=== PATIENT | male | born 1945 | race Caucasian/White ===

== ENCOUNTER 2020-06-21 20:53 | Outpatient (REF) | payer OTHER, SELFPAY ==
[2020-06-21 20:38] LABS: Calculated LDL 138 mg/dL (<100); Cholesterol 220 mg/dL (<200); HDL Cholesterol 76 mg/dL (40-60); Triglyceride 33 mg/dL (<150)
== END 2020-06-21 20:54 | disposition home or self-care (01) ==
LOC: LBN 20:53
PROVIDERS: PCP Family Medicine; Visit Provider Family Medicine
DX: E78.5 Hyperlipidemia, unspecified (principal)
CPT/HCPCS: 80061

== ENCOUNTER 2020-11-10 00:58 | Outpatient (CLI) | payer OTHER, SELFPAY ==
[2020-11-10 21:58] LABS: PSA, Screening 0.5 ng/mL (0.0-6.5)
== END 2020-11-10 00:59 | disposition home or self-care (01) ==
LOC: LOS 01:07
PROVIDERS: PCP Family Medicine; Visit Provider Family Medicine
DX: Z12.5 Encounter for screening for malignant neoplasm of prostate (principal)
CPT/HCPCS: 36415; 84153

== ENCOUNTER 2024-02-02 10:04 | Inpatient (IN) | payer OTHER, SELFPAY ==
[2024-02-02 13:02] VITALS: BP 116/84; PULSE 70; RESP 18; TEMP 37.6; O2SAT 96
--- NOTE | 2024-02-02 13:15 | W.PC.ACHO ---
Registration Status: Primary Language: Preferred Language: (Last Reviewed 01/01/23 @ 11:32 by Portillo Gray MD) REMOVAL OF LIPOMAS Most Recent Vital Signs Temperature 37.6 C H 02/02/24 13:02 Temperature Source Tympanic 02/02/24 13:02 Pulse 70 02/02/24 13:02 Respiratory Rate 18 02/02/24 13:02 Blood Pressure 116/84 02/02/24 13:02 Pulse Oximetry 96 02/02/24 13:02 Oxygen Delivery Method Room Air 02/02/24 13:02 Oxygen Flow Rate 0 02/02/24 13:02 Pain Level 2 02/02/24 13:02 Comment RN notified 02/02/24 13:02 Allergies No Known Allergies Allergy (Verified 01/01/23 11:41) Diet Orders Category Date Time Status Nothing Per Oral [DIET] Nutrition 02/03/24 Breakfast Ordered Regular/Normal [DIET] Nutrition 02/02/24 Lunch Active Diagnostics 02/02/24 02/02/24 Range/Units Unknown 10:06 WBC Pending RBC Pending Hgb Pending Hct Pending MCV Pending MCH Pending MCHC Pending RDW Pending Plt Count Pending MPV Pending Sodium Pending Potassium Pending Chloride Pending Carbon Dioxide Pending Anion Gap Pending BUN Pending Creatinine Pending Est GFR (CKD-EPI 2020) Pending Glucose Pending Calcium Pending v v v v v v v v v Sending and/or Receiving Nurses: Please use comment section below to note any information pertinent to the patient hand-off not included above. Information / Comments: rprured quads tripping down stairs Report received from: Odilia
[2024-02-02] MEDS: oxyCODONE 5 MG TAB PO ×2 (13:28→15:20)
[2024-02-02] MEDS: Ketorolac 15 MG/ML VIAL IVP (13:28)
[2024-02-02] MEDS: Acetaminophen 500 MG TAB 1000 MG PO (15:20)
[2024-02-02 15:25] VITALS: BP 101/70; PULSE 66; RESP 16; TEMP 36.5; O2SAT 95
--- NOTE | 2024-02-02 17:15 | W.PC.ACHO ---
Registration Status: Primary Language: Preferred Language: (Last Reviewed 01/01/23 @ 11:32 by Portillo Gray MD) REMOVAL OF LIPOMAS Most Recent Vital Signs Temperature 36.5 C 02/02/24 15:25 Temperature Source Tympanic 02/02/24 15:25 Pulse 66 02/02/24 15:25 Respiratory Rate 16 02/02/24 15:25 Blood Pressure 101/70 02/02/24 15:25 Pulse Oximetry 95 02/02/24 15:25 Oxygen Delivery Method Room Air 02/02/24 15:25 Oxygen Flow Rate 0 02/02/24 15:25 Pain Level 0 02/02/24 15:25 Comment RN notified 02/02/24 13:02 Allergies No Known Allergies Allergy (Verified 02/02/24 14:02) Active Medications Generic Name Dose Route Start Last Admin Trade Name Freq PRN Reason Stop Dose Admin Acetaminophen 1,000 mg 02/02/24 10:04 02/02/24 15:20 Acetaminophen 500 Mg Tab PO 1,000 mg Q6H PRN PRN Administration Ketorolac Tromethamine 15 mg 02/02/24 14:00 02/02/24 13:28 Ketorolac 15 Mg/Ml Vial IVP 02/07/24 13:59 15 mg Q8H FELIPE Administration Oxycodone HCl 0 mg 02/02/24 10:04 02/02/24 15:20 Oxycodone 5 Mg Tab PO 5 mg Q3H PRN PRN Administration Pain IV IV Catheter Type [Left Wrist] Peripheral IV IV Catheter Gauge [Left Wrist] 22 Diet Orders Category Date Time Status Nothing Per Oral [DIET] Nutrition 02/03/24 Breakfast Ordered Regular/Normal [DIET] Nutrition 02/02/24 Lunch Active Diagnostics 02/02/24 02/02/24 Range/Units Unknown 10:06 WBC Pending RBC Pending Hgb Pending Hct Pending MCV Pending MCH Pending MCHC Pending RDW Pending Plt Count Pending MPV Pending Sodium Pending Potassium Pending Chloride Pending Carbon Dioxide Pending Anion Gap Pending BUN Pending Creatinine Pending Est GFR (CKD-EPI 2020) Pending Glucose Pending Calcium Pending v v v v v v v v v Sending and/or Receiving Nurses: Please use comment section below to note any information pertinent to the patient hand-off not included above. Information / Comments:transfer from [facility] for bilateral ruptured quadriceps, fell down stairs Report received from:Lillie at [facility] at 12:55, pt was on the Med/Surg floor via [facility] 12:46
--- NOTE | 2024-02-02 17:24 | HPE_ITS ---
Date of service: 02/02/24 Time of Service: 16:50 Assessment and Plan Assessment and plan (1) Rupture of left quadriceps muscle: Status: Acute (2) Rupture of right quadriceps muscle: Status: Acute Assessment and plan: Carmelo is a 78 year old active male who suffered traumatic rupture of bilateral quadriceps. 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 At the time of quadriceps repair there is nothing more that can be done with the joint itself. On a day to day basis the knees don't limit him greatly and we will worry with treatment of the knee pain/arthritis/dysfunction once he heals the qaudriceps tendon ruptures. I discussed the need for urgent operative fixation of the tendon ruptures. I reviewed the risks of the procedure to include pain, stiffness, bleeding, rerupture, knee pain, failure to heal, damage to nerves and vessels. He agrees to proceed. Due to multiple other trauma cases this will likely not be fixed until Friday. I discussed this with him and he understands. Given the bilateral nature of his inujuries, mobilization will be challenging and thus we will keep him admitted until surgery on Friday. Following surgery he will be WBAT on both legs with knee immobilizers locked in full extension. History of Present Illness History of Present Illness Chief Complaint: Bilateral Quad Tendon Ruptures N arrative: Carmelo is a healthy and active 78 year old male. He was in his usual health when he was walking down the stairs and tripped over a tennis ball and fell with both feet behind him. He had immediate pain and inability to bear weight. He was brought to the [facility] ED and diagnosed with bilateral quad tendon ruptures. There was no orthopaedic surgery coverage. He was admitted to the hospital and unable to find other tertiary transfer. I was called in consultation and I accepted him on transfer. He has had some ongoing issues with both knees which keeps him from playing tennis and being otherwise more active. However, he is still very functional and denied having significant anterior knee pain although he does report having anterior knee issues many years ago; it kept me out of the . No pre-inuury weakness or significant issues. He currrently has inability to bear weight and only minimal pain. He denies any other major medical issues and no regular medications. Review of Systems All systems reviewed & are unremarkable except as noted in HPI and below [facility] All Active Problems Rupture of right quadriceps muscle (Acute) Rupture of left quadriceps muscle (Acute) Esophagitis (Acute) Left inguinal hernia (Acute) s/p repair 03/2020 (also incarcerated left femoral hernia) Weight loss (Acute) MAINLY INTENTIONAL-[facility] Knee pain (Acute) DJD (degenerative joint disease) of knee (Acute) B/L -[facility] Chronic pain of both knees (Acute) Surgical History REMOVAL OF LIPOMAS Family History Mother , AGE 96 Diabetes Brother , age 79 Cancer Brother , age 69 Esophageal cancer Brother No problems noted. Brother No problems noted. Father , AGE 84 No problems noted. Social History Smoking/Tobacco Use Status: Never Smoking risk assessment performed?: Yes Alcohol Intake: never Substance use type: does not use Caregiver/Support person: No Household members: none Housing: house Communication Needs: Hard of Hearing Do you need help understanding health information?: Rarely Pets and animals: Yes Pets and animals: dog(s) Sexually active: Yes Do you think of yourself as: straight/heterosexual Current gender identity: male What is your relationship status?: never How often do you talk on the phone with friends or family?: three or more times per week How often do you get together with friends or relatives?: three or more times per week How often do you attend episcopal or yazidi services?: 4 or more times per year Do you belong to any clubs or organized social groups?: yes Panel score (0-1 are the most socially isolated patients): 3 What type of physical activity do you participate in: walking, bicycling and other Details: recumbant bike Duration: 15-30 minutes/day Frequency: daily Marta/Nondenominational: Sikh Special marta needs: No Seatbelt use: always Helmet use: Yes Helmet use: sometimes Drive intox or ride w/intox hazmat cdl a driver: No Meds Allergies and Home Medications Allergies Allergy/AdvReac Type Severity Reaction Status Date / Time No Known Allergies Allergy Verified 02/02/24 14:02 Home Medications ?Medication ?Instructions ?Recorded ?Confirmed ?Type Trimotion 1 tab PO 1XD 01/24/16 02/02/24 History vitamin A-vitamin C-vit E-min 1 ea PO DAILY 01/24/16 02/02/24 History tablet (Vision tablet) parotid PMG See Rx Instructions PO DAILY 02/13/18 02/02/24 History BARLEYGRASS See Rx Instructions .Route DAILY 02/16/19 02/02/24 History Sp Detox Balance See Rx Instructions .Route .COMPLEX 02/16/19 02/02/24 History cardio plus See Rx Instructions .Route .COMPLEX 02/16/19 02/02/24 History immuplex 1 tab PO TID 02/16/19 02/02/24 History ligaplex 2 See Rx Instructions PO DAILY 02/16/19 02/02/24 History [facility] See Rx Instructions .Route .COMPLEX 02/16/19 02/02/24 History zypan See Rx Instructions PO DAILY 02/16/19 02/02/24 History vitality essential 1 tab PO 1XD 06/21/20 02/02/24 History Exam Const General: cooperative, healthy appearing, comfortable and no acute distress HENMT Head: normal to inspection, normocephalic and atraumatic Resp Effort & Inspection: normal respiratory effort Auscultation: clear to auscultation bilaterally Cardio Rate: regular rate Rhythm: regular rhythm Extrem Other: Evaluation of bilateral knees shows obvious defects at the superior patella. There is a clear avulsion of the quadriceps on both palpation of the knee joint through the skin. No significant effusion. No skin defects or abrasions. No ability to elevate the patella or lift the leg/heel off of the bed bilaterally. SILT DP/SP/Tib. Palpable DP/PT pulse bilaterally. Results Imaging Imaging Studies: X-ray of both knees show mild joint space narrowing. There are chronic changes of throughout the patellofemoral joints. Enthesophytes seen about the proximal patella with distraction when compared to previous x-rays. Patella has a inferior position, patella baja. Labs 02/02/24 Unknown 02/02/24 10:06 Last Vital Signs Temp 36.5 C 02/02/24 15:25 Pulse 66 02/02/24 15:25 Resp 16 02/02/24 15:25 BP 101/70 02/02/24 15:25 Pulse Ox 95 02/02/24 15:25 Time Spent Time spent with Patient: 55-74 minutes Time was spent: preparing to see the patient(eg.review tests), obtaining and/or reviewing separately otained hiistory, ordering medications,tests, procedures, referring, communicating with other health urgent care physician assistant, indepentently interpreting results and counseling the patient
[2024-02-02 21:02] LABS: HCT 39.4 % (40.0-50.0); HGB 13.3 g/dL (13.5-17.5); MCH 31.4 pg (27.0-33.0); MCHC 33.8 % (32.0-36.0); MCV 93 fL (80-95); MPV 9.6 fL (8.0-11.0); Platelet Count 226 10^3/uL (130-400); RBC 4.24 10^6/uL (4.36-5.78); RDW 12.7 % (11.8-14.1); RDW-SD 43.6 fL; WBC 7.96 10^3/uL (4.4-10.8)
[2024-02-02] MEDS: Normal Saline Flush 10 ML SYR IVP (21:04)
[2024-02-02 22:31] LABS: Anion Gap 9.9 mmol/L (3-11); BUN 23 mg/dL (7-18); CO2 26.1 mmol/L (21.0-32.0); CREATININE 1.3 mg/dL (0.70-1.30); Calcium 8.5 mg/dL (8.5-10.1); Chloride 107 mmol/L (98-107); Estimated GFR 55.88 (mL/min/1.73m2); Glucose 96 mg/dL (74-106); Potassium 3.7 mmol/L (3.5-5.1); Sodium 143 mmol/L (136-145)
[2024-02-02 23:30] VITALS: BP 102/72; PULSE 60; RESP 16; TEMP 36.3; O2SAT 98
[2024-02-03 03:34] VITALS: BP 103/84; PULSE 63; RESP 18; TEMP 36.2; O2SAT 98
[2024-02-03 08:04] VITALS: BP 101/79; PULSE 68; RESP 20; TEMP 36; O2SAT 94
[2024-02-03] MEDS: Multivitamin w/Minerals TAB 1 TAB PO (09:50)
[2024-02-03] MEDS: Normal Saline Flush 10 ML SYR IVP ×2 (09:51→20:43)
--- NOTE | 2024-02-03 11:55 | PDOC.CMIN ---
Date of service: 02/03/24 Time of Service: 11:55 Care Management Initial Assmt Initial Assessment Reason for Hospitalization: Traumatic rupture of bilateral quadriceps Functional Status/Living Situation Patient Presentation: Carmelo was awake and lying in bed when CM met with him. He is pleasant and easy to engage in conversation. He seems to be in good spirits, despite having ruptured his quadriceps muscles from a fall he sustained by stepping on a dog toy. He is planning on going to the OR tomorrow for repair. PT recommendations to follow. He is very happy with the care he is receiving and would be agreeable to STR, if recommended. 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) Instrumental Activities of Daily Living (ADLs): Independent Activities/Hobbies/SocialSupport: Writing, playing tennis Medications Medication Management: No Issues/Barriers identified Physical Functioning/Mobility Assistive Device: None Advance Directives Advance Directives: Do you have an Advance Directive: Y 01/01/23 10:59 AD On File at [facility]: Y 01/01/23 10:59 Date Asked 02/02/24 02/02/24 09:45 AD Date Reviewed 02/02/24 02/02/24 09:45 COLST On File at [facility] COLST Date Scanned Code Status Resuscitation Status Full Code Portal Pt does not currently have a portal and education provided: Yes Insurance Coverage/Financial Issues Insurance: [facility] Financial Issues: None identified Care Team Visit Care Team Role Provider Type Portillo Gray MD Primary Care Provider [facility] STAFF PHYSICIAN Dominic Gandhi MD Admit Provider [facility] STAFF PHYSICIAN Attending Provider Discharge Potential Discharge Needs: PT Evaluation, PCP F/U Appt and Surgical F/U Appt Anticipated Barriers to Discharge: Medical Status Patient/Family Education Needs: Review discharge instructions, discuss Ask Me Three Plan: Surgery is planned tomorrow. PT recommendations to follow. PCP and Ortho follow up after discharge. VNA services will be through [facility], if needed. Transportation will be dependent on his dispo and mobility at the time of discharge. Agreeable to STR, if needed. CM will follow. PFSH All Active Problems Rupture of right quadriceps muscle (Acute) Rupture of left quadriceps muscle (Acute) Esophagitis (Acute) Left inguinal hernia (Acute) s/p repair 03/2020 (also incarcerated left femoral hernia) Weight loss (Acute) MAINLY INTENTIONAL-[facility] REC[facility]DS Knee pain (Acute) DJD (degenerative joint disease) of knee (Acute) B/L -[facility] Chronic pain of both knees (Acute) Surgical History REMOVAL OF LIPOMAS Family History Mother , AGE 96 Diabetes Brother , age 79 Cancer Brother , age 69 Esophageal cancer Brother No problems noted. Brother No problems noted. Father , AGE 84 No problems noted. Social History Smoking/Tobacco Use Status: Never Smoking risk assessment performed?: Yes Alcohol Intake: never Substance use type: does not use Caregiver/Support person: No Household members: none Housing: house Communication Needs: Hard of Hearing Do you need help understanding health information?: Rarely Pets and animals: Yes Pets and animals: dog(s) Sexually active: Yes Do you think of yourself as: straight/heterosexual Current gender identity: male What is your relationship status?: never How often do you talk on the phone with friends or family?: three or more times per week How often do you get together with friends or relatives?: three or more times per week How often do you attend presybeterian or uatsdin services?: 4 or more times per year Do you belong to any clubs or organized social groups?: yes Panel score (0-1 are the most socially isolated patients): 3 What type of physical activity do you participate in: walking, bicycling and other Details: recumbant bike Duration: 15-30 minutes/day Frequency: daily Marta/Faith: Hinduism Special marta needs: No Seatbelt use: always Helmet use: Yes Helmet use: sometimes Drive intox or ride w/intox driver/refuse collector: No SDOH(Care Management) Screening Will the Patient Participate in the Screening?: Yes Do you worry about having a steady place to live?: no In the past 12 months, have you had to go without electric, gas, oil or water in your home?: no Have you or anyone in your house had to go without enough food to eat?: no Has lack of transportation kept you from medical appointments or from doing things needed for daily living?: no Has anyone in your support network made you feel unsafe for any reason?: no
[2024-02-03 15:58] VITALS: BP 103/64; PULSE 62; RESP 18; TEMP 36; O2SAT 96
--- NOTE | 2024-02-03 16:15 | W.PM.PROGNOT ---
Date of Service Date of service: 02/03/24 Time of Service: 15:00 Assessment and Plan Assessment and plan (1) Rupture of right quadriceps muscle: Status: Acute (2) Rupture of left quadriceps muscle: Status: Acute Assessment and plan: Plan for bilateral qaudriceps tendon repair tomorrow. NPO after midnight. WBAT with knee immobilizers for bedside commode. (3) Constipation: Status: Acute Assessment and plan: Will start sennosides and docusate. Continue to encourage hydration. No concerning features. Subjective Subjective Interval history since last seen: Carmelo reports to be doing well. His pain has been well controlled. He has not had a BM but is voiding without difficulty. No abdominal pain. Passing flatus. No new concerns. No chest pain or SOB. Exam Narrative Exam Narrative: Resting in the bed. NAD. AAOx3. Bilateral legs in knee immobilizer. No skin defect. Objective Last Vital Signs Temp 36 C L 02/03/24 15:58 Pulse 62 02/03/24 15:58 Resp 18 02/03/24 15:58 BP 103/64 02/03/24 15:58 Pulse Ox 96 02/03/24 15:58 Laboratory Results - last 24 hr 02/02/24 20:52 WBC 7.96 RBC 4.24 L Hgb 13.3 L Hct 39.4 L MCV 93 MCH 31.4 MCHC 33.8 RDW 12.7 Plt Count 226 MPV 9.6 Sodium 143 Potassium 3.7 Chloride 107 Carbon Dioxide 26.1 Anion Gap 9.9 BUN 23 H Creatinine 1.3 Est GFR (CKD-EPI 2020) 55.88 Glucose 96 Calcium 8.5 Time Spent with Patient Time Spent with Patient: <25 minutes Time was spent: obtaining and/or reviewing separately otained hiistory and counseling the patient
[2024-02-03] MEDS: Polyethylene Glycol 3350 17 GM PACKET PO (17:00)
[2024-02-03] MEDS: Sennosides/Docusate Sodium TAB 1 TAB PO (20:43)
[2024-02-03 23:02] VITALS: BP 102/66; PULSE 65; RESP 18; TEMP 36.9; O2SAT 96
[2024-02-04] VITALS (24 sets, daily range): BP systolic 78–127; BP diastolic 45–77; PULSE 61–87; RESP 12–27; TEMP 35.5–37.1; O2SAT 94–98; BMI 24.3
--- NOTE | 2024-02-04 08:27 | PDOC.CMPRO ---
Date of service: 02/04/24 Time of Service: 08:27 Care Management Progress Note Progress Note Text Progress Note Text: Carmelo was sitting up in bed writing when CM met with him. He is planning on going down to the OR this afternoon and denies concerns at this time. He remains agreeable to SNF for STR, if needed. Will await PT recommendations. CM will follow. Discharge Potential Discharge Needs: PCP F/U Appt and Other (Ortho) Anticipated Barriers to Discharge: Medical Status Patient/Family Education Needs: Review discharge instructions, discuss Ask Me Three Transportation: Other Plan: Surgery is planned this afternoon. PT recommendations to follow. Home with services vs. SNF for STR. Transportation will be dependent on his dispo and mobility at the time of discharge. CM will follow. SDOH(Care Management) Screening Will the Patient Participate in the Screening?: Yes Do you worry about having a steady place to live?: no In the past 12 months, have you had to go without electric, gas, oil or water in your home?: no Have you or anyone in your house had to go without enough food to eat?: no Has lack of transportation kept you from medical appointments or from doing things needed for daily living?: no Has anyone in your support network made you feel unsafe for any reason?: no
[2024-02-04] MEDS: Normal Saline Flush 10 ML SYR IVP ×2 (09:11→20:02)
--- NOTE | 2024-02-04 09:31 | W.PM.PROGNOT ---
Date of Service Date of service: 02/04/24 Time of Service: 09:31 Assessment and Plan Assessment and plan (1) Constipation: Status: Acute Assessment and plan: Will start sennosides and docusate. Continue to encourage hydration. No concerning features. Continue to follow and be more aggressive after surgery. (2) Rupture of right quadriceps muscle: Status: Acute (3) Rupture of left quadriceps muscle: Status: Acute Assessment and plan: Currently NPO. Plan for repair of bilateral quadriceps tendon avulsions today. I reviewed the technical details of the surgery with Carmelo. I discussed the risk to include bleeding, infection, pain, stiffness, weakness, lag, rerupture, fracture, need for repeat procedures. All of his questions were answered. Will proceed later today. Subjective Subjective Interval history since last seen: Carmelo reports no changes in his health. He has been n.p.o. since midnight. He has no complaints at this time. No bowel movement passing flatus. Ready for surgery to fix his bilateral legs. Exam Narrative Exam Narrative: Resting comfortably in the hospital bed. No acute distress. Alert and x 3. Both legs were knee immobilizers. Objective Last Vital Signs Temp 36.6 C 02/04/24 07:56 Pulse 68 02/04/24 07:56 Resp 14 02/04/24 07:56 BP 101/75 02/04/24 07:56 Pulse Ox 98 02/04/24 07:56 Time Spent with Patient Time Spent with Patient: 25-34 minutes Time was spent: preparing to see the patient(eg.review tests), indepentently interpreting results and counseling the patient
--- NOTE | 2024-02-04 11:36 | ANES.PREOP_ITS ---
General Info Date of Service Date Performed: 02/04/24 Height: 5 ft 11 in Weight: 79 kg Body Mass Index (BMI): 24.3 Surgical Procedure: Operation Date: 02/04/24 13:40 Proposed Procedure Side Surgeon p Knee Ruptured Quad Tendon Repair Bilateral Dominic Gandhi MD Meds Allergies and Home Medications Allergies Allergy/AdvReac Type Severity Reaction Status Date / Time No Known Allergies Allergy Verified 02/02/24 14:02 Home Medication ?Medication ?Instructions ?Recorded vitamin A-vitamin C-vit E-min 1 ea PO DAILY 01/24/16 tablet (Vision tablet) parotid PMG See Rx Instructions PO DAILY 02/13/18 BARLEYGRASS See Rx Instructions .Route DAILY 02/16/19 cardio plus See Rx Instructions .Route .COMPLEX 02/16/19 immuplex 1 tab PO TID 02/16/19 [facility] See Rx Instructions .Route .COMPLEX 02/16/19 vitality essential 1 tab PO 1XD 06/21/20 Current Visit Medications: Current Medications Generic Name Dose Route Start Last Admin Trade Name Freq PRN Reason Stop Dose Admin Acetaminophen 1,000 mg 02/02/24 10:04 02/02/24 15:20 Acetaminophen 500 Mg Tab PO 1,000 mg Q6H PRN PRN Administration Ondansetron HCl 4 mg/ Sodium 52 mls @ 200 mls/hr 02/02/24 10:04 Chloride IVPB Q6H PRN PRN Tranexamic Acid/Sodium Chloride 1,000 mg in 100 mls @ 600 mls/hr 02/04/24 06:30 IVPB PREOP FELIPE Cefazolin Sodium/Dextrose 2 gm in 50 mls @ 100 mls/hr 02/04/24 06:30 Ancef Duplex IVPB PREOP FELIPE IV Miscellaneous Supplies 1 each 02/02/24 10:15 Iv Access IV DIRECTED FELIPE Iron/Minerals/Multivitamins 1 tab 02/03/24 08:30 02/03/24 09:50 Multivitamin W/Minerals Tab PO 1 tab DAILY FELIPE Administration Ketorolac Tromethamine 15 mg 02/02/24 20:00 Ketorolac 15 Mg/Ml Vial IVP 02/07/24 19:59 Q8H PRN PRN Pain Oxycodone HCl 0 mg 02/02/24 10:04 02/02/24 15:20 Oxycodone 5 Mg Tab PO 5 mg Q3H PRN PRN Administration Pain Polyethylene Glycol 17 gm 02/03/24 15:12 02/03/24 17:00 Polyethylene Glycol 3350 17 Gm Packet PO 17 gm BID PRN PRN Administration Senna/Docusate Sodium 1 tab 02/03/24 20:00 02/03/24 20:43 Sennosides/Docusate Sodium Tab PO 1 tab BID FELIPE Administration Sodium Chloride 0 ml 02/02/24 10:04 Normal Saline Flush 10 Ml Syr IVP PRN PRN Sodium Chloride 0 ml 02/02/24 20:00 02/04/24 09:11 Normal Saline Flush 10 Ml Syr IVP 10 ml BID FELIPE Administration Sodium Chloride 0 ml 02/02/24 10:04 Normal Saline 10 Ml Vial IJ DIRECTED PRN PFSH Active Problems Active Problems: Problem Status Onset Code Constipation Acute K59.00 Rupture of right quadriceps muscle Acute S76.111A Rupture of left quadriceps muscle Acute S76.112A Esophagitis Acute K20.90 Left inguinal hernia Acute K40.90 Weight loss Acute R63.4 Knee pain Acute M25.569 DJD (degenerative joint disease) of knee Acute M17.10 Chronic pain of both knees Acute M25.561, M25.562, G89.29 Surgical History Surgical History REMOVAL OF LIPOMAS Tobacco Smoking/Tobacco Use Status: Never Passive smoking exposure: Yes Alcohol Alcohol Intake: never Substance Use Substance use type: does not use Vital Signs and Lab Results Vital Signs Most Recent Vital Signs in EMR: Most Recent Vital Signs Temp Pulse Resp BP Pulse Ox 36.6 C 68 14 101/75 98 02/04/24 07:56 02/04/24 07:56 02/04/24 07:56 02/04/24 07:56 02/04/24 07:56 Lab Results 02/02/24 20:52 02/02/24 20:52 Blood Type / Crossmatch: 2 No Data to Display Complete Blood Count: 2 White Blood Count 7.96 10^3/uL (4.4-10.8) 02/02/24 20:52 Red Blood Count 4.24 10^6/uL (4.36-5.78) L 02/02/24 20:52 Hemoglobin 13.3 g/dL (13.5-17.5) L 02/02/24 20:52 Hematocrit 39.4 % (40.0-50.0) L 02/02/24 20:52 Platelet Count 226 10^3/uL (130-400) 02/02/24 20:52 Complete Metabolic Panel: 2 Sodium 143 mmol/L (136-145) 02/02/24 20:52 Potassium 3.7 mmol/L (3.5-5.1) 02/02/24 20:52 Chloride 107 mmol/L (98-107) 02/02/24 20:52 Carbon Dioxide 26.1 mmol/L (21.0-32.0) 02/02/24 20:52 BUN 23 mg/dL (7-18) H 02/02/24 20:52 Creatinine 1.3 mg/dL (0.70-1.30) 02/02/24 20:52 Est GFR (CKD-EPI 2020) 55.88 (mL/min/1.73m2) 02/02/24 20:52 Calcium 8.5 mg/dL (8.5-10.1) 02/02/24 20:52 Glucose 96 mg/dL (74-106) 02/02/24 20:52 Liver Function Panel: 2 No Data to Display Coagulation Panel: 2 No Data to Display Cardiac Panel: 2 No Data to Display Arterial Blood Gas: 2 No Data to Display Venous Blood Gas: 2 No Data to Display Pancreas Panel: 2 No Data to Display Thyroid Panel: 2 No Data to Display Infectious Disease: 2 No Data to Display Blood Cultures: 2 No Data to Display Toxicology Panel: 2 No Data to Display Anesthesia Assessment and Plan Anesthesia History Personal History: No History of Anesthesia Complications Family History: No Family History of Anesthesia Complications Exercise Tolerance Exercise Tolerance: Metabolic Equivalents>4 Pertinent Negatives Pertinent Negatives: No Symptoms of GERD, No Major Cardiovascular Symptoms or Complaints, No Major Pulmonary Symptoms or Complaints and No History of CVA/TIA Cardiac & Pulmonary Exam Cardiac Exam: Normal S1/S2 Heart Sounds Pulmonary Exam: Clear Bilateral Breath Sounds Implantable Cardiac Device Does patient have a Pacemaker or an ICD?: No Airway Exam Known Difficult Airway: No Mallampati Class: 3 Mouth Opening: Normal (> 3cm) Thyromental Distance: Greater than 3 cm Neck Range of Motion: Full ROM Neck Circumference: Normal Teeth Condition: Normal Dentition ASA Classification ASA Score: ASA 2 Emergency Case?: No NPO Status NPO Status: NPO Clears >2 hours, Solids >8 hours Anesthesia Plan Resuscitation Status: Full Code Anesthesia Technique: Spinal Anesthesia Airway Planned: Natural Airway Pain Management: Surgeon and patient request nerve block Monitors Used: Standard Monitors
--- NOTE | 2024-02-04 13:15 | PHA.REVIEW2 ---
Pharmacy Admission Review Admission Clinical Review Admission Pharmacy Review: Constipation (Acute) Rupture of right quadriceps muscle (Acute) Rupture of left quadriceps muscle (Acute) No Known Allergies Allergy (Verified 02/02/24 14:02) Resuscitation Status Full Code Height 5 ft 11 in Weight 79 kg Comments Comments/Follow Ups: OR today for repair of bilateral quadriceps tendon avulsions Pharmacy Admission Review Renal Dosing Renal Dosing: BUN 23 mg/dL (7-18) H 02/02/24 20:52 Creatinine 1.3 mg/dL (0.70-1.30) 02/02/24 20:52 Medications needing adjustments: Reviewed (CrCl 51 mL/min) List of meds needing interventions: Current medications are okay Anticoagulation Anticoagulation: Hgb 13.3 g/dL (13.5-17.5) L 02/02/24 20:52 Hct 39.4 % (40.0-50.0) L 02/02/24 20:52 Plt Count 226 10^3/uL (130-400) 02/02/24 20:52 Creatinine 1.3 mg/dL (0.70-1.30) 02/02/24 20:52 DVT Prophylaxis: Reviewed (SCDs - OR today) Opiate Usage Evaluate Pain Scale/Pains Meds: Reviewed (oxycodone q3h PRN - no doses given in past 24 hours) Scheduled Bowel Reg ordered if on Opiates?: Yes (Senna/docusate BID) Relevant Labs Relevant Labs: Sodium 143 mmol/L (136-145) 02/02/24 20:52 Potassium 3.7 mmol/L (3.5-5.1) 02/02/24 20:52 Chloride 107 mmol/L (98-107) 02/02/24 20:52 Electrolytes, C-Reactive P, ESR: Reviewed (No new labs) Cardiac Review BP, HR, EF%: Reviewed (BP and HR WNL) QTc Review QTc: Reviewed (No EKG on file) IV to PO Switch IV Medications: Reviewed (cefazolin (preop), ketorolac, ondansetron and TXA (preop)) Home Meds Home Med List reviewed: Reviewed Relevent Home Meds Not ordered & why?: Supplements Current Meds Current Medication Order Review: Reviewed Comments Comments/Follow Ups: OR today for repair of bilateral quadriceps tendon avulsions
[2024-02-04] MEDS: Lactated Ringers 500 ML 30 ML IV (13:29)
[2024-02-04] MEDS: ceFAZolin 2 GM/50 ML BAG IVPB (13:49)
[2024-02-04] MEDS: TRANEXAMIC ACID/SOD. CHL. 1,000 MG/100 ML BAG 600 MG IVPB (13:52)
--- NOTE | 2024-02-04 14:14 | W.ANESNERVE ---
Nerve Block Single Injection Procedure Date and Time Date Performed: 02/04/24 Procedure Start: 13:19 Location Where Procedure Performed Procedure Location: PACU Reason Performed: Postoperative Analgesia Requesting Provider: Dominic Gandhi Timeout Performed Timeout Performed: Yes Monitoring Used ECG, Blood Pressure and SpO2 Sterility Sterility: Hand Hygiene, Surgical Cap, Surgical Mask, Sterile Gloves and Chlorhexidine Sedation Given During Procedure Sedation Given (Indicate Dose Given): No Sedation given Patient Mental Status Patient Mental Status: Awake Nerve Block 1st Nerve Block: Laterality: Bilateral Block Type: Adductor Canal Ultrasound Image Saved?: Yes Needle / Catheter Used: 100mm SonoPlex II Local Anesthetic Bolus (Indicate Dose Given): Lidocaine used for local infiltration of skin, Injected in 3-5ml increments after negative blood aspiration, Half of Total block solution given into each side and Bupivacaine 0.25% Dose:: 20 mL Additives (Indicate Dose Given): None Ultrasound: Sterile probe cover and gel used Nerve Stimulator: Supplement to Ultrasound use and No twitch or parasthesia noted < 0.5 mA Paresthesia: None Procedure Tolerated: No Complications and Patient tolerated well Procedure Outcome: Successful Performed By: Arben Barajas Supervised By: Juan C Linda
--- NOTE | 2024-02-04 17:09 | ROE_ITS ---
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 He does report some ongoing chronic anterior knee pain but no noted weakness and normal function. He was diagnosed with bilateral quadricep avulsions and therefore I recommend proceed with operative fixation. I discussed the details of the surgery. I reviewed the risk to include bleeding, infection, pain, stiffness, weakness, hardware or repair failure, blood clot. Despite these risk, he elected to proceed. Findings: Both knees have complete avulsions of the quadriceps and the vastus medialis. There was no attachments on either patella for nearly 270 degrees of the patella circumference. There was smoothing and flattening of the superior pole the patella with bone embedded within the tendon stump and a false tendon which seem to come from the anterior patella on both knees. This appeared to have a component of a chronicity with ongoing partial quadriceps tears and a chronic nature until the fall. Each quadricep was repaired with suture anchors and multiple interrupted sutures. Procedure Description: Carmelo was greeted in the preoperative holding area. His identity was confirmed the correct site was identified and marked. The consent was reviewed the patient and signed. History and physical was updated. He was taken back to the operating room placed in the supine position. A spinal anesthetic was administered successfully. All bony prominences well-padded. Both legs were prepped with ChloraPrep and draped in a standard fashion utilizing a bilateral drape. Prophylactic antibiotics in the form of cefazolin were given. 1 g of tranexamic acid was given. A timeout is performed for safe surgery. Starting with the left side I incised the previous stockinette and prepped the knee once again. I then placed an iodine impregnated drape over the skin once a ChloraPrep had dried. I then made a longitude incision along the midline of the knee. Skin was incised sharply. Bleeding was controlled with electrocautery. There is an obvious defect. I was staring at the end of the femur. Interestingly, the patella had no soft tissue attachments to it. He was completely bald from about 9:00 to 5:00. There was sloping of the superior pole the patella with a very prominent medial facet. The entire vastus medialis oblique us was avulsed off from the patella once again with no tendon remnant against the patella. There was a veil of tissue which was not the true tendon. This seemed to be quite thick and did have some structure to it. My suspicion is that this served as a false tendon from chronic quadriceps tendinitis and partial tears. The superior pole patella was smooth and had no appearance as a typical quadriceps avulsion. Within the false tendon there was a thickening more proximally which I think represented the actual true tendon edge. There is bony fragments within this tendon edge. I left the false tendon in place to use for later incorporation. However, I debrided back some the bone that was within the end of the tendon and this tendon edge. I also utilized a rongeur to smooth down the bone of the patella exposing bleeding bone and also somewhat reshape the patella. The knee was then thoroughly irrigated with saline. Also was rinsed with Betadine where this was allowed to sit for 3 minutes. I then proceeded with repair. I placed 1 single 4.75 mm swivel lock anchor over the medial facet of patella to serve as an anchor point for the vastus medialis obliqus origin. This was repaired by using a 3.2 mm drill followed by tap. The suture anchor was tested and showed excellent fixation. I then placed 2 sutures into the vastus origin and a yordy type fashion. These were not tied. Next attention was turned to the main quadriceps. Utilizing a fiber tape I ran locking Krak?w sutures up and down both medial and lateral aspects of the quadriceps tendon. 5 locking Krak?w throws were placed into each limb going up and then 5 coming down. I was able to mobilize the quadriceps tendon down to the patella. I then prepared the site for 2 swivel lock anchors. This was done once again with a drill and a tap. I then placed 2 knotless 4.75 mm swivel lock anchors by docking the 2 suture limbs from the lateral edge of the quadriceps into a swivel lock. This was then inserted into the lateral patella bringing the quadriceps tendon down to the superior pole of the patella. There is repeated for the medial. The deep surface of the patella did have attachment of the quadriceps. However, there was some gapping anteriorly or dorsally. Therefore I utilized the sutures that were within the swivel lock anchor to reduce this down to the superior pole the patella. Once this was done there was notable approximation of the tendon down to bone. I then continued the repair by utilizing some suture tape to repair the medial and lateral extensions. Interestingly, this was fully through the retinacular tissue distal to the fascia of the vastus lateralis and vastus medialis. This tissue was nicholas pproximated with large bites as I did not have the same integrity as the other fascial structures. I also reinforced the leading edge of this false tendon down to the patella utilizing a #1 Vicryl. This construct was then tested to about 60 degrees where he had no gapping. It was quite tight and I did not push the range of motion past that point. Once again the wound was irrigated. A mixture of ropivacaine, epinephrine, clonidine, and ketorolac was injected throughout the knee and the soft tissues. The deep tissues were then closed with a 0 Vicryl followed by 2-0 Vicryl. The skin was closed with a running 3-0 Monocryl. This was reinforced with skin glue. A Mepilex silver dressing was applied. Attention was turned to the right knee. In a similar fashion, the impervious stockinette was incised and the knee was prepped ChloraPrep. This allowed to dry for 3 minutes until visibly dry and iodine impregnated drape was then placed. Midline incision was made. Deep dissection was carried down through the skin and subcutaneous tissues and a defect was obvious. Much like the left side the patella was absent any soft tissue attachments were about 9:00 to 6:00. Medially there was no attachments all the way to the patellar ligament. Once again the superior aspect of patella was sloped and smooth. This false tendon was still present. This was dissected back to show the leading edge of the real tendon with significant amount of bony structures within this tissue dorsally as well as at the end of the tendon. This tendon edge was debrided. As much bone as possible was removed. I debrided the end of the patella to get down to some bleeding bone but not penetrate too far into the patella. Some of the false tendon was preserved for later incorporation into the repair. The knee was then irrigated with Betadine where was allowed to sit for 3 minutes. This was then washed out with saline. The soft tissues and deep tissues within the knee were injected with a mixture of ropivacaine, epinephrine, clonidine, and ketorolac. On this side I decided to place SwiveLock anchors ahead of time. I placed 3 anchors similarly as I did on the left side utilizing a drill and a tap. These 3 anchors were placed and the sutures from then the anchors were used. I placed a running Krak?w suture up and down the medial and lateral aspects utilizing a suture from the medial?superior anchor in the lateral?superior anchor. I then simply use a yordy style stitch from the medial facet anchor. I then tied the sutures utilizing the free limb as a yordy type technique. This approximated the tendon down to bone. The sutures were tied preserving not integrity. I also then utilized the free sutures from the 2 proximal anchors to reapproximate the dorsal edge of the quadriceps down to the superior pole patella. This had excellent approximation of the tendon down to bone. Muscle the other side there is an extreme amount of split going distal to the vastus lateralis and vastus medialis. I repaired this with suture tape. #1 Vicryl is also used to reapproximate some of that false tendon on top of the patella and incorporate as much as possible of these tissue edges on top of each other as a belts and suspenders type approach. The consult was tested to about 70 degrees where it was stable. The site seem to be less tight than the left side. The wound was once again irrigated. The deep tissues were closed with a 0 and 2-0 Vicryl. Skin was closed with a running, subcuticular 3-0 Monocryl. This was reinforced with skin glue. A Mepilex silver dressing was applied. Ameya wrap's are placed on each leg. I then placed each knee into a hinged knee brace locking the flexion at 30 degrees. Carmelo has a guarded prognosis. His recovery will be challenging. He will be weightbearing as tolerated the knee is locked in extension for 6 weeks. His knee braces will be unlocked to 30 degrees to allow for some positioning. At the 2-week visit we will continue with 30 degrees then followed by 60 degrees at 4 weeks and then up to 90 degrees at 6 weeks.
--- NOTE | 2024-02-04 18:03 | W.ANESPOSTOP ---
Postoperative Evaluation Date, Time and Location Date Performed: 02/04/24 Time Performed: 18:03 Patient Location: Day Surgery Unit Vital Signs Most Recent Imported Vital Signs: Most Recent Vital Signs Temp Pulse Resp BP Pulse Ox 36.4 C L 79 18 93/77 L 96 02/04/24 17:54 02/04/24 17:54 02/04/24 17:54 02/04/24 17:54 02/04/24 17:54 Pain Score Most Recent Pain Score: Most Recent Pain Score Pain Level [Generalized] 0 02/04/24 08:20 Pain Level 0 02/04/24 17:35 Assessment Mental Status: Awake (Alert & Oriented to Patient Baseline) Airway and Respiratory Function: Patent airway with normal (patient baseline) respiratory exam Cardiovascular Function: Hemodynamically Stable Hydration Status: Adequately Hydrated Nausea & Vomiting: No Nausea or Vomiting Pain: Pain is tolerable per patient Peripheral Nerve Block: Regional nerve block not resolved at time of post operative discharge
[2024-02-04] MEDS: Sennosides/Docusate Sodium TAB 1 TAB PO (20:01)
[2024-02-04] MEDS: ceFAZolin 1 GM/50 ML BAG IVPB (20:02)
[2024-02-05] MEDS: ceFAZolin 1 GM/50 ML BAG IVPB ×2 (03:58→12:12)
[2024-02-05] MEDS: Acetaminophen 500 MG TAB 1000 MG PO ×2 (04:01→20:38)
[2024-02-05] MEDS: Normal Saline Flush 10 ML SYR IVP ×3 (04:34→20:38)
[2024-02-05 08:02] VITALS: BP 107/64; PULSE 69; RESP 20; TEMP 36.3; O2SAT 96
[2024-02-05] MEDS: Multivitamin w/Minerals TAB 1 TAB PO (08:10)
[2024-02-05] MEDS: Ketorolac 15 MG/ML VIAL IVP (08:10)
[2024-02-05] MEDS: Sennosides/Docusate Sodium TAB 1 TAB PO (08:11)
--- NOTE | 2024-02-05 09:58 | CMPROGNOTE_ITS ---
Date of service: 02/05/24 Time of Service: 09:58 Care Management Progress Note Progress Note Text Progress Note Text: Carmelo was sitting in a recliner when CM met with him. He had surgery yesterday and requires hinged knee braces which will support his group home leg extension needs. PT recommends SNF for STR and referrals were sent to [facility] and [facility] with patients permission. His preference is [facility]. CM reviewed case with Dr. Gandhi and will continue to follow and support discharge planning conciderations. Discharge Plan: SNF for STR. Referrals were sent to [facility] and the [facility]. Transportation will be dependent on his dispo and mobility at the time of discharge. CM will follow. SDOH(Care Management) Screening Will the Patient Participate in the Screening?: Yes Do you worry about having a steady place to live?: no In the past 12 months, have you had to go without electric, gas, oil or water in your home?: no Have you or anyone in your house had to go without enough food to eat?: no Has lack of transportation kept you from medical appointments or from doing things needed for daily living?: no Has anyone in your support network made you feel unsafe for any reason?: no
--- NOTE | 2024-02-05 10:06 | IN_ITS ---
PT Notes Visit Reasons: Bilateral quad ruptures Physical Therapy Initial Evaluation Date: 02/05/2024 Referring Doctor: Dr. Gandhi PT Orders: PT CONSULT: Status post Ortho surgery Precautions: WBAT with bilateral knee braces locked in extension x 6 weeks, may unlock to 30 degrees for positioning purposes only. Ortho follow-up in 2 weeks in which she will continue with 30 degrees flexion x 2 weeks then at week 4 will advance to 60 degrees for 2 weeks then at week 6 up to 90 degrees flexion Patient Profile/Admitting Diagnosis: Patient is 78-year-old male status post fall downstairs landing with his feet behind him after tripping on the ball. He was unable to stand and presented to ED at [facility] via EMS. He was diagnosed with bilateral quadriceps avulsion(tendon and vastus medialis). He was transferred on 02 01 to [facility] for Ortho surgery. He was placed in bilateral knee immobilizers until surgery which was performed on 02/04/[address] Gandhi under spinal anesthesia. Postop uncomplicated. He was placed in bilateral hinged knee braces locked in extension for 6 weeks and weightbearing as tolerated. PMHX: Rupture of right quadriceps muscle (Acute) Rupture of left quadriceps muscle (Acute) Esophagitis (Acute) Left inguinal hernia (Acute) s/p repair 03/2020 (also incarcerated left femoral hernia)Weight loss (Acute) MAINLY INTENTIONAL-[facility] Knee pain (Acute) DJD (degenerative joint disease) of knee (Acute) B/L -[facility] Chronic pain of both knees (Acute) Surgical History REMOVAL OF LIPOMAS Social History/Home Situation: Patient reports he resides in an old school house which is being renovated with his bedroom and office in the basement 12 steps down with railing. 8 steps with rail to enter home. Patient independent ADLs, ambulation, meal prep, household tasks, yard work, shopping, medication management and iADLs. Patient drives. 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 Equipment Owned/DME: None Subjective: Patient reports his home is cluttered and he will need to have assistance with cleaning in preparation for return to home. He states he has support in the community. He denies pain Objective: General Observation: Awake semireclined in bed bilateral knee braces in place locked in extension agreeable to participate in evaluation Mental Status: Alert and oriented x 4 Pain: Bilateral knees 1?2/10 after ambulating ROM: Right Upper Extremity: Within normal limits Left Upper Extremity: Within normal limits Right Lower Extremity: Hip and ankle within normal limits; knee locked in extension with hinged knee brace Left Lower Extremity: Hip and ankle within normal limits; knee locked in extension with hinged knee brace Strength: Right Upper Extremity: 5/5 Left Upper Extremity: 5/5 Right Lower Extremity: Hip abduction 3 -/5; hip extension 3 -/5; knee not tested; ankle 3/5 Left Lower Extremity: Hip abduction 3 -/5; hip extension 3 -/5; knee not tested; ankle 3/5 Sensation: Intact bilateral lower extremities Bed Mobility/Transfers: Rolling: With rails and min assist for lower extremity Supine to sit min assist Sit to stand from elevated bed height of 28 inches mod assist of 2 Stand to sit on elevated seat height min assist of 2 Bed to chair with FWW and bilateral knee braces locked in extension min assist of 1and CGA of 1 Gait: Ambulate 8 feet with FWW and bilateral knee braces locked in extension with min assist of 1 and CGA of 1 demonstrating circumduction bilateral lower extremities and hip hike to advance. Balance: Static Sitting: Fair Dynamic Sitting: Fair minus Static Standing: Fair minus with FWW Dynamic Standing: Poor+ with FWW Special Tests: Mobility Limitations Standardized Measure [facility] 6 clicks Basic Mobility Inpatient Short Form: Raw Score: 12 CMS Score: 68.66% Informed Consent/Education: Patient instructed in purpose of PT consult. He was educated on post-acute rehab recommendations of short-term rehab due to current knee restrictions requiring elevated surfaces for transfers. Assessment: Patient is 78-year-old male presenting status post bilateral quad avulsions with surgical repair. Patient requires continuous use of bilateral knee braces locked in extension while weightbearing as tolerated. Patient is able to unlock the brace is to 30 degrees for positioning only. He will remain locked in extension x 2 weeks then progressed to 30 degrees until 4 weeks where he will progress to 60 degrees until 6 weeks when he will advance to 90 degrees. Patient is significantly limited by inability to flex bilateral knees during functional mobility thereby requiring elevated surfaces for all transfers. Patient presents with clinical signs and symptoms consistent with current/admitting diagnoses that have resulted to mobility limitations, gait instability, generalized weakness, and impairment of motor control as demonstrated by the following impairment level findings: 1. Decreased strength to BLE major muscle groups 2. Impaired standing/sitting balance 3. Limitation of joint range of motion in B knee 4. Impaired activity tolerance in standing Impairments are contributing to the following functional limitations: 1. Inability to safely ambulate without assistive device and without assistance 2. Increase completion time for mobility/ADL performance 3. Increased fall risk 4. Decline in bed mobility skills 5. Declining transfer skills 6. Inability to safely perform stairs Patient is assessed as a moderate complexity based on the following: History: 78 year-old male with impairment level findings, functional limitations, and past medical history as indicated above Examination: Demonstrable impairment in strength, balance, and mobility level with underlying impairments and functional limitations as documented above Presentation: Evolving Decision Making: Moderate Goals: 1. Supine to sit CGA 2. Sit to supine CGA 3. Sit to stand from elevated surface min assist of 1 4. Stand to sit to elevated surface min assist of 1 5. Bed to chair with FWW CGA with cues for FWW management 6. Ambulate 25 feet x 2 with FWW and bilateral knee braces locked in extension with CGA 7. Patient will demonstrate ability to assess for knee braces locked in extension independently. Plan of Care/Treatment Plan: Pt would benefit from skilled PT 1-2 times per day for global strengthening, transfers, ambulation, pain management and balance facilitation DISCHARGE RECOMMENDATIONS: Short term SNF TREATMENT CODE/TIME:26840o 20 mins for 1 unit, 92121 x 28 mins for 2 units/ [id number] Thank you for the opportunity to participate in the care of this patient. Kendra Bruno PT Please sign an return this page within 30 days if you agree with the above POC. Thank you! Physician Signature Date [facility]
--- NOTE | 2024-02-05 13:11 | W.PM.PROGNOT ---
Date of Service Date of service: 02/05/24 Time of Service: 12:45 Assessment and Plan Assessment and plan (1) Rupture of right quadriceps muscle: Status: Acute (2) Rupture of left quadriceps muscle: Status: Acute Assessment and plan: Carmelo is doing well status post bilateral quadriceps repairs. I discussed with him the details of the surgery and the complexities of his case. He has been able to mobilize already which is an excellent start. Will remain weightbearing as tolerated with knees locked in extension. He may unlock the braces but not mobilizing without the 30 degrees of flexion. He should work on ankle range of motion as well. Given the difficulty with mobilization with both knees locked in extension, he likely require custodial facility discharge. He is currently unable to mobilize. His pain is well-controlled with current regimen. Discharge planning. Follow-up in the office in approximately 2 weeks. (3) Constipation: Status: Acute Assessment and plan: Will start sennosides and docusate. Continue to encourage hydration. No concerning features. Continue to follow and increase medications as needed. Subjective Subjective Interval history since last seen: Carmelo reports be doing well. He denies having any pain. He has been able to mobilize with physical therapy. He does have difficulty getting out of the bed given his restrictions of keeping the legs fully extended. No chest pain or SOB. Able to void. No BM but pasing flatus. No abdominal pain. Exam Narrative Exam Narrative: Sitting up in the chair. No acute distress. Bilateral lower extremities are wrapped with Ameya wrap zavala and knee immobilizers. Dressings are clean dry and intact. No palpable defect about either knee. Sensation intact to light touch over the deep and superficial peroneal nerve and tibial nerve bilaterally. Objective Last Vital Signs Temp 36.3 C L 02/05/24 08:02 Pulse 69 02/05/24 08:02 Resp 20 02/05/24 08:02 BP 107/64 02/05/24 08:02 Pulse Ox 96 02/05/24 08:02 Time Spent with Patient Time Spent with Patient: <25 minutes Time was spent: preparing to see the patient(eg.review tests), obtaining and/or reviewing separately otained hiistory and counseling the patient
--- NOTE | 2024-02-05 15:11 | PT.INTREAT ---
PT Notes Visit Reasons: Bilateral quad ruptures Inpatient Physical Therapy Treatment Note [facility] Date: 02/05/2024 PRECAUTIONS:WBAT with bilateral knee braces locked in extension x 6 weeks, may unlock to 30 degrees for positioning purposes only. Ortho follow-up in 2 weeks in which she will continue with 30 degrees flexion x 2 weeks then at week 4 will advance to 60 degrees for 2 weeks then at week 6 up to 90 degrees flexion SUBJECTIVE: Pt able to verbalize that his braces were unlocked and that they needed to be locked before he could get up. OBJECTIVE: pt presented in recliner with BLE elevated with hinged braces on BLE unlocked. ? PAIN: Denied Therapeutic Activities (54392): Direct one-on-one instruction in dynamic activities to improve functional performance. ? BED MOBILITY/TRANSFERS? Scooting/boost: Independent ? Sit-supine: Min assist of 1 for bilateral lower extremities ? Sit-stand: Mod assist of 2? Stand-sit: Min assist of 2? Chair-bed: FWW min assist of 1 and contact-guard assist of 1 Provided skilled cues and instruction on performance and technique throughout. Ambulation: 12 feet with 2 turns with FWW min assist of 1 and contact-guard assist of 1 and verbal cues for FWW placement further away from body to improve stability ASSESSMENT:? MEÑO Mendiola instructed in how to lock braces in extension prior to moving patient. Pt demonstrates carryover of need for braces to be locked prior to transfers . He requires assistance in how to lock them at this time. He able to increase distance of ambulation this afternoon. Pt remains limited by inability to bend knees for transfers therefore requiring significantly elevated surfaces to achieve stand position. PLAN: Pt would benefit from skilled PT 1-2 times per day for global strengthening, transfers, ambulation, pain management and balance facilitation TREATMENT CODE/TIME: 13463 x 28 minutes for 2 units/1301?1322 DISCHARGE RECOMMENDATION: Short-term SNF
[2024-02-05 16:06] VITALS: BP 111/72; PULSE 70; RESP 18; TEMP 36.8; O2SAT 97
[2024-02-05] MEDS: Polyethylene Glycol 3350 17 GM PACKET PO (16:30)
[2024-02-05 20:57] VITALS: BP 100/65; PULSE 66; RESP 16; TEMP 36.6; O2SAT 96
[2024-02-05] MEDS: oxyCODONE 5 MG TAB PO (22:45)
[2024-02-06] MEDS: Ketorolac 15 MG/ML VIAL IVP (01:15)
[2024-02-06] MEDS: Acetaminophen 500 MG TAB 1000 MG PO ×2 (02:36→15:23)
[2024-02-06] MEDS: oxyCODONE 5 MG TAB PO ×5 (02:36→20:53)
[2024-02-06 08:23] VITALS: BP 92/70; PULSE 67; RESP 17; TEMP 35.7; O2SAT 97
[2024-02-06] MEDS: Multivitamin w/Minerals TAB 1 TAB PO (08:49)
[2024-02-06] MEDS: Normal Saline Flush 10 ML SYR IVP ×2 (08:50→20:54)
--- NOTE | 2024-02-06 11:19 | PTTR_ITS ---
PT Notes Visit Reasons: Bilateral quad ruptures Inpatient Physical Therapy Treatment Note [facility] Date: 02/06/2024 PRECAUTIONS:WBAT with bilateral knee braces locked in extension x 6 weeks, may unlock to 30 degrees for positioning purposes only when at rest. Ortho follow- up in 2 weeks in which he will continue with 30 degrees flexion x 2 weeks then at week 4 will advance to 60 degrees for 2 weeks then at week 6 up to 90 degrees flexion SUBJECTIVE: Pt again was able to verbalize that his braces were unlocked and that they needed to be locked before he could get up. Pt reported he had severe pain last night requiring pain medication. He reports his legs are more painful today than yesterday but not as painful as last night. He stated he felt all the medication from surgery finally wore off and that's why his legs hurt so bad last night. OBJECTIVE: pt presented supine in bed with hinged braces on BLE unlocked. ? PAIN: Pre-medicated: pain 3/10 at rest, increased to 5/10 after standing. Therapeutic Activities (98064): Direct one-on-one instruction in dynamic activities to improve functional performance. ?? Provided skilled cues and instruction on performance and technique throughout. ? BED MOBILITY/TRANSFERS? Scooting/boost: Independent ? Sit-supine: Min assist of 1 for bilateral lower extremities ? Sit-stand: Mod assist of 2? from elevated bed (28 height)?maintaining B knee extension ?Pt places right hand on bed and left hand on the FWW. ? Stand-sit: Min assist of 2? to elevated chair height (25 ) maintaining ?B knee extension ?Pt reaches back with RUE ? Chair-bed: FWW min assist of 1 and contact-guard assist of 1with cues to keep FWW away from body for improved stability Ambulation: 10 feet with 1 turn with FWW min assist of 1 and contact-guard assist of 1 and verbal cues for FWW placement further away from body to improve stability Therex: B heelcord stretch with braces locked in extension 5 reps x 30 sec with sheet, bridge with knee extension x 5 reps, Glut sets x 15 reps with 5 sec hold, Hip abd x 15reps AAROMsupine ASSESSMENT:? 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 Pt demonstrates carryover of need for braces to be locked prior to transfers . He requires assistance on how to lock them at this time. He had increased difficulty advancing his LEs during ambulation as compared to prior session. Pt will continue to require 2 assist for safe transfers until able to achieve knee flexion. Pt requires to assist for stand to sit to control descent onto chair/bed. Pt remains limited by inability to bend knees for transfers therefore requiring significantly elevated surfaces to achieve stand position. PLAN: Pt would benefit from skilled PT 1-2 times per day for global strengthening, transfers, ambulation, pain management and balance facilitation TREATMENT CODE/TIME: 23274 x 19 mins for 1 unit , 25248 x 24 minutes for 2 un its/3926-7823, [id number] DISCHARGE RECOMMENDATION: Short-term SNF
--- NOTE | 2024-02-06 13:38 | PGE_ITS ---
Date of Service Date of service: 02/06/24 Time of Service: 13:38 Assessment and Plan Assessment and plan (1) Rupture of right quadriceps muscle: Status: Acute (2) Rupture of left quadriceps muscle: Status: Acute Assessment and plan: Continue to work with physical therapy with same protocols. No change needed in medications as he feels as though the medications prescribed are adequately treating his pain. Will be discharged to intermediate facility once he has placement. Subjective Subjective Interval history since last seen: Carmelo is postop day #2 from bilateral quadricep repairs and is doing well. He is sitting comfortably in a chair eating lunch with his brace is locked in full extension as instructed. He states that he has had to use slightly more pain medicine today than he had 2 in the last couple of days, but does consider the pain still manageable. He relates that he is still awaiting placement at a intermediate facility but otherwise is comfortable. Exam Extrem Other: Brief exam of both legs shows that they are locked in full extension with the brace and an Ameya wrap is still in place. None of this is removed for exam today. There is no drainage through the dressing at this time. He is able to move his feet and ankles comfortably. Neurovascularly intact bilaterally. Objective Last Vital Signs Temp 96.3 F L 02/06/24 08:23 Pulse 67 02/06/24 08:23 Resp 17 02/06/24 08:23 BP 92/70 L 02/06/24 08:23 Pulse Ox 97 02/06/24 08:23 Time Spent with Patient Time Spent with Patient: <25 minutes Time was spent: preparing to see the patient(eg.review tests), referring, communicating with other health hospice care transitions coordinator and counseling the patient
--- NOTE | 2024-02-06 13:59 | CMPROGNOTE_ITS ---
Date of service: 02/06/24 Time of Service: 13:59 Care Management Progress Note Progress Note Text Progress Note Text: Carmelo was sitting up in bed when CM met with him. He was pleasant and engaged well in conversation. He stated that he is doing well today, and discussed his goal, which is to walk independently again, expressing understanding of his need to go to rehab. CM followed up on the referrals sent and was unable to connect with the [facility]; [facility] is reviewing the referral. CM discussed options with Carmelo, and he agreed to referrals being sent elsewhere, including [facility], [facility], [facility] and [facility]. CM discussed insurance considerations, and explained the process of getting into a rehab facility, including the PA that will likely need to be obtained by the accepting facility. CM recommended that he inquire about obtaining MCR during open enrollment, which is happening now. CM will send a referral to [facility] for support with obtaining MCR. CM will continue to follow. Discharge Potential Discharge Needs: Other (SNF) Anticipated Barriers to Discharge: None Identified Patient/Family Education Needs: Review discharge instructions, discuss [facility] Transportation: EMS (possible, depending on mobility at time of discharge) Plan: Anticipate Carmelo will go to SNF for short term rehab prior to returning home. Referrals were sent to [facility] and the [facility]. His transportation will depend on his mobility at the time of discharge. SDOH(Care Management) Screening Will the Patient Participate in the Screening?: Yes Do you worry about having a steady place to live?: no In the past 12 months, have you had to go without electric, gas, oil or water in your home?: no Have you or anyone in your house had to go without enough food to eat?: no Has lack of transportation kept you from medical appointments or from doing things needed for daily living?: no Has anyone in your support network made you feel unsafe for any reason?: no
--- NOTE | 2024-02-06 13:59 | PTTR_ITS ---
PT Notes Visit Reasons: Bilateral quad ruptures Date: 02/06/2024 PRECAUTIONS:WBAT with bilateral knee braces locked in extension x 6 weeks, may unlock to 30 degrees for positioning purposes only when at rest. Ortho follow- up in 2 weeks in which he will continue with 30 degrees flexion x 2 weeks then at week 4 will advance to 60 degrees for 2 weeks then at week 6 up to 90 degrees flexion SUBJECTIVE: Pt in recliner when approached for therapy, pt requested to go to bed. OBJECTIVE: pt presented long sitting in recliner with hinged braces on BLE unlocked. ? PAIN: Pre-medicated: pain 3/10 at rest, pain stayed at 3/10 during the duration of transfer. Therapeutic Activities (27650): Direct one-on-one instruction in dynamic activities to improve functional performance. ?? Provided skilled cues and instruction on performance and technique throughout. ? BED MOBILITY/TRANSFERS? Scooting/boost: Independent? Sit-stand: Mod assist of 1? from recliner?Pt places right hand on armrest and left hand on the FWW. ? ? Stand-sit: Mod assist of 1? to elevated bed (25 ) maintaining ?B knee extension ?Pt reaches back with RUE ? Chair-bed: min A Sit-supine: Min assist of 1 for bilateral lower extremities ? Ambulation: Recliner to bed side 10 feet with 1 turn with FWW Min A of 1 ASSESSMENT:? MEÑO Knox instructed in how to lock braces in extension prior to moving patient. Pt able to complete transfer with less support as long pt foot is prevented from sliding. PLAN: Pt would benefit from skilled PT 1-2 times per day for global strengthening, transfers, ambulation, pain management and balance facilitation TREATMENT CODE/TIME: 41573 x1 15 minutes for 1 unit (1:15-1:30pm) DISCHARGE RECOMMENDATION: Short-term SNF
[2024-02-06 20:02] VITALS: BP 85/61; PULSE 63; RESP 15; TEMP 36.9; O2SAT 94
[2024-02-06 20:13] VITALS: BP 78/58
[2024-02-06 20:30] VITALS: BP 112/70
[2024-02-06] MEDS: Senna TAB 1 TAB PO (20:54)
[2024-02-06] MEDS: Polyethylene Glycol 3350 17 GM PACKET PO (20:54)
[2024-02-06] MEDS: Bisacodyl 5 MG TABEC PO (22:50)
[2024-02-07] MEDS: oxyCODONE 5 MG TAB PO (03:07)
[2024-02-07] MEDS: Ketorolac 15 MG/ML VIAL IVP (06:38)
[2024-02-07] MEDS: Acetaminophen 500 MG TAB 1000 MG PO ×2 (06:38→21:14)
[2024-02-07 07:29] VITALS: BP 79/57; PULSE 67; RESP 18; TEMP 35.9; O2SAT 95
[2024-02-07 07:30] VITALS: BP 80/63; BP 91/64
[2024-02-07] MEDS: Enoxaparin 40 MG/0.4 ML SYR SC (09:00)
[2024-02-07] MEDS: Senna TAB 1 TAB PO ×2 (09:01→21:04)
[2024-02-07] MEDS: Polyethylene Glycol 3350 17 GM PACKET PO ×2 (09:01→21:04)
[2024-02-07] MEDS: Normal Saline Flush 10 ML SYR IVP ×2 (09:01→21:04)
[2024-02-07] MEDS: Multivitamin w/Minerals TAB 1 TAB PO (09:01)
--- NOTE | 2024-02-07 10:40 | PT.INTREAT ---
PT Notes Visit Reasons: Bilateral quad ruptures Inpatient Physical Therapy Treatment Note [facility] Date: 02/06/24 SUBJECTIVE: Carmelo states that he is doing ok. Pain is well managed. OBJECTIVE: []? VITALS: ?closely monitored by nsg. Therapeutic Activities (52905i8): Direct one-on-one instruction in dynamic activities to improve functional performance. ? BED MOBILITY/TRANSFERS? Supine-sit: SBA ? Sit-stand: Mod A of 1 and CGA of 1 ? bed raised up to at least 26? Stand-sit: CGA of 2 ? Bed-Chair: CGA of 1 ? Provided skilled cues and instruction on performance and technique throughout. GAIT? Assistive Device: FWW? Weight bearing: AT Assist: CGA of 1 and SBA of 1 ? Distance:? approx. 8' ? Deviation: short strides? Therapeutic Exercises (14757g4): Direct one-on-one instruction in therapeutic exercises to develop strength, endurance, range of motion and flexibility. ? Exercises ?performed ankle pumps, GS, hip abd, QS and assisted (max) SLR Provided skilled instruction in proper exercise performance Provided skilled manual cues to facilitate proper muscle recruitment and/or form: ASSESSMENT:? tolerated session well. No LOB or pain with transfers or ex. he did holler out when transferred sit to stand, but admitted he felt unsteady and got freaked out. No LOB noted. PLAN: will continue to work on his strength and functional mobility follow PT POC. TREATMENT CODE/TIME: 25 min. [id number], 81236g2
--- NOTE | 2024-02-07 12:31 | PGE_ITS ---
Date of Service Date of service: 02/07/24 Time of Service: 12:40 Assessment and Plan Assessment and plan (1) Rupture of right quadriceps muscle: Status: Acute (2) Rupture of left quadriceps muscle: Status: Acute Assessment and plan: Plan: Mr. Reagan is a 78-year-old male who is post op day 3 status post bilateral quadriceps avulsion repairs by Dr. Gandhi on 02/02/24. Reviewed his PT note from this morning - patient did have one time of feeling unsteady but no loss of balance or fall. Recommend continue to work with physical therapy with same protocols. For constipation will continue with encouraging fluids, miralax and senokot as scheduled as well as dulcolax PRN. Patient was eager to attempt another trial on the commode - nursing staff was made aware. No change needed in medications as he feels as though the medications prescribed are adequately treating his pain. Will be discharged to longterm facility once he has placement. (3) Constipation: Status: Acute Subjective Subjective Interval history since last seen: Mr. Reagan is a 78-year-old male who is post op day 3 status post bilateral quadriceps avulsion repairs by Dr. Gandhi on 02/02/24. Overall he reports doing well overnight and this morning. Denies significant discomfort; has been managing with acetaminophen and oxycodone PRN. Has been tolerating transfers well. Continues to keep bilateral leg braces locked in extension. Completed session of PT this morning without issues. Continues to have constipation but reports passing gas without pain. Denies additional GI symptoms. Exam Const Nutritional Appearance: well nourished Orientation: alert, awake and oriented x3 Resp Auscultation: clear to auscultation bilaterally, no rales, no rhonchi and no wheezes Extrem Other: Bilateral leg examination: TROM braces in place - gabriel bandages intact and dry. Sensation to light touch intact along length of extremities. He is able to move his toes and ankles without discomfort or restricted motion. Objective Last Vital Signs Temp 96.6 F L 02/07/24 07:29 Pulse 67 02/07/24 07:29 Resp 18 02/07/24 07:29 BP 91/64 L 02/07/24 07:30 Pulse Ox 95 02/07/24 07:29 Time Spent with Patient Time Spent with Patient: <25 minutes Time was spent: preparing to see the patient(eg.review tests), obtaining and/or reviewing separately otained hiistory and counseling the patient
[2024-02-07 14:01] VITALS: O2SAT 95
[2024-02-07 15:24] VITALS: BP 101/57; PULSE 70; RESP 19; TEMP 36.8; O2SAT 98
[2024-02-07 19:51] VITALS: BP 109/67; PULSE 74; RESP 16; TEMP 37.2; O2SAT 95
[2024-02-07] MEDS: Bisacodyl 5 MG TABEC PO (21:04)
[2024-02-08 04:06] VITALS: BP 102/66; PULSE 60; RESP 16; TEMP 37; O2SAT 95
[2024-02-08 06:17] LABS: Abs Immature Grans 0.03 10^3/uL (0.0-0.06); Absolute Basophil Count 0.05 10^3/uL (0.0-0.2); Absolute Eosinophil Count 0.28 10^3/uL (0.0-0.7); Absolute Lymphocyte Count 1.09 10^3/uL (1.2-3.4); Absolute Monocyte Count 0.88 10^3/uL (0.1-0.8); Absolute Neutrophil Count 5.62 10^3/uL (1.2-6.7); Basophils % 0.6 %; Eosinophils % 3.5 %; HCT 37.4 % (40.0-50.0); HGB 12.9 g/dL (13.5-17.5); Immature Grans % 0.4 %; Lymphocytes % 13.7 %; MCH 31.5 pg (27.0-33.0); MCHC 34.5 % (32.0-36.0); MCV 91 fL (80-95); MPV 9.8 fL (8.0-11.0); Monocytes % 11.1 %; Neutrophils % 70.7 %; Platelet Count 209 10^3/uL (130-400); RBC 4.09 10^6/uL (4.36-5.78); RDW 12.4 % (11.8-14.1); RDW-SD 41.4 fL; WBC 7.95 10^3/uL (4.4-10.8)
[2024-02-08 07:39] VITALS: BP 106/65; PULSE 67; RESP 18; TEMP 36.8; O2SAT 96
[2024-02-08] MEDS: Senna TAB 1 TAB PO (09:00)
[2024-02-08] MEDS: Multivitamin w/Minerals TAB 1 TAB PO (09:00)
[2024-02-08] MEDS: Polyethylene Glycol 3350 17 GM PACKET PO (09:00)
[2024-02-08] MEDS: Enoxaparin 40 MG/0.4 ML SYR SC (09:00)
[2024-02-08] MEDS: Normal Saline Flush 10 ML SYR IVP ×2 (09:00→21:12)
[2024-02-08 09:46] VITALS: O2SAT 95
--- NOTE | 2024-02-08 10:00 | PTTR_ITS ---
PT Notes Visit Reasons: Bilateral quad ruptures Inpatient Physical Therapy Treatment Note [facility] Date: 02/08/24 SUBJECTIVE: Carmelo states that he is well. No complaints offered. He requests a larger commode, as he feels he might be a little more comfortable vs the s tandard one he has now. I did discuss this with MEÑO, who was going to look into it. OBJECTIVE: []? VITALS: ?closely monitored by nsg. Therapeutic Activities (13598d9): Direct one-on-one instruction in dynamic activities to improve functional performance. ? BED MOBILITY/TRANSFERS? Supine-sit: SBA ? Sit-stand: Mod A of 1 and CGA of 1 ? bed raised up to at least 26? Stand-sit: CGA of 2 ? Bed-Chair: CGA of 1 ? Provided skilled cues and instruction on performance and technique throughout. GAIT? Assistive Device: FWW? Weight bearing: AT Assist: CGA of 1 and SBA of 1 ? Distance:? approx. 12'? Deviation: short strides? Therapeutic Exercises (17750l2): Direct one-on-one instruction in therapeutic exercises to develop strength, endurance, range of motion and flexibility. ? Exercises ?performed ankle pumps, GS, hip abd, QS and assisted (max) SLR while in bed. Standing wt shifts s/s x 10. Provided skilled instruction in proper exercise performance Provided skilled manual cues to facilitate proper muscle recruitment and/or form: ASSESSMENT:? tolerated session well. Still requires a significant amount of assistance getting onto feet, but once he is there, he is quite steady on feet. No LOB. Fatigues quickly with walking. PLAN: will continue to work on his strength and functional mobility follow PT POC. TREATMENT CODE/TIME: 30 min. [id number], [id number]
--- NOTE | 2024-02-08 13:36 | W.PM.PROGNOT ---
Date of Service Date of service: 02/07/24 Time of Service: 12:40 Assessment and Plan Assessment and plan (1) Rupture of right quadriceps muscle: Status: Acute (2) Rupture of left quadriceps muscle: Status: Acute Assessment and plan: Plan: Mr. Reagan is a 78-year-old male who is post op day 4 status post bilateral quadriceps avulsion repairs by Dr. Gandhi on 02/02/24. Reviewed his PT note from this morning - did well without complaints. Recommend continue to work with physical therapy with same protocols. For constipation had extended conversation with patient and nursing staff. On physical examination he is nontender, nondistended with NABS. He does not have any additional GI complaints and continues to tolerate oral intake well. Discussed option for altering his current constipation medications but he is optimistic that he will have a bowel movement later. Patient was initially questioning size of his current commode, however after discussion with patient and nurse a bariatric commode would likely not change patient's concerns for overall seat comfort. Yesterday patient describes attempting to have bowel movement with legs in an uncomfortable extended position via placement of trash cans; discussed additional options for patient's to have legs extended via blanket/pillows to help increase overall comfort while attempting to have bowel movement on commode. Patient is agreeable and discussed this with nursing staff as well. Patient was eager to attempt another trial on the commode - nursing staff was made aware. Will continue with encouraging fluids, miralax and senokot as scheduled as well as dulcolax PRN - did give dose yesterday and will repeat tonight. If continues to have constipation or develops other GI symptoms may consider need for obtaining electrolyte labs, abdominal x-ray as well as altering his medications. No change needed in medications as he feels as though the medications prescribed are adequately treating his pain - has not needed oxycodone today. Will be discharged to snf facility once he has placement. (3) Constipation: Status: Acute Subjective Subjective Interval history since last seen: Mr. Reagan is a 78-year-old male who is post op day 4 status post bilateral quadriceps avulsion repairs by Dr. Gandhi on 02/02/24. Overall he reports doing well overnight and this morning. Denies significant discomfort; has been managing with acetaminophen and has not needed oxycodone since yesterday morning. Has been tolerating transfers well. Continues to keep bilateral leg braces locked in extension. Completed session of PT this morning without issues. Continues to have constipation but reports passing gas without pain. Denies additional GI symptoms. Exam Const Nutritional Appearance: well nourished Orientation: alert, awake and oriented x3 GI Inspection: normal to inspection Palpation: soft and nontender Auscultation: normoactive bowel sounds Extrem Other: Bilateral leg examination: TROM braces in place - gabriel bandages intact and dry. Sensation to light touch intact along length of extremities. He is able to move his toes and ankles without discomfort or restricted motion. Objective Last Vital Signs Temp 98.2 F 02/08/24 07:39 Pulse 67 02/08/24 07:39 Resp 18 02/08/24 07:39 BP 106/65 02/08/24 07:39 Pulse Ox 95 02/08/24 09:46 Laboratory Results - last 24 hr 02/08/24 06:00 WBC 7.95 RBC 4.09 L Hgb 12.9 L Hct 37.4 L MCV 91 MCH 31.5 MCHC 34.5 RDW 12.4 Plt Count 209 MPV 9.8 Immature Gran % 0.4 Neutrophils % 70.7 Lymphocytes % 13.7 Monocytes % 11.1 Eosinophils % 3.5 Basophils % 0.6 Nucleated RBC % 0.0 Absolute Neutrophils 5.62 Absolute Lymphocytes 1.09 L Absolute Monocytes 0.88 H Absolute Eosinophils 0.28 Absolute Basophils 0.05 Time Spent with Patient Time Spent with Patient: <25 minutes Time was spent: preparing to see the patient(eg.review tests), obtaining and/or reviewing separately otained hiistory, referring, communicating with other health field care manager, counseling the patient and care coordination
[2024-02-08 15:23] VITALS: BP 107/78; PULSE 76; RESP 18; TEMP 36; O2SAT 98
[2024-02-08 20:04] VITALS: BP 104/67; PULSE 77; RESP 18; TEMP 36.5; O2SAT 95
[2024-02-08] MEDS: Acetaminophen 500 MG TAB 1000 MG PO (21:15)
[2024-02-08] MEDS: oxyCODONE 5 MG TAB PO (21:48)
[2024-02-09] MEDS: Normal Saline Flush 10 ML SYR IVP ×3 (01:47→20:25)
[2024-02-09 01:48] VITALS: BP 102/72; PULSE 60; RESP 16; TEMP 36.2; O2SAT 95
[2024-02-09 07:23] VITALS: BP 106/61; PULSE 65; RESP 20; TEMP 36; O2SAT 96
[2024-02-09] MEDS: Celecoxib 200 MG CAP PO ×2 (10:05→20:25)
[2024-02-09] MEDS: Multivitamin w/Minerals TAB 1 TAB PO (10:05)
[2024-02-09] MEDS: Sennosides/Docusate Sodium TAB 1 TAB PO ×2 (10:06→20:25)
[2024-02-09] MEDS: Enoxaparin 40 MG/0.4 ML SYR SC (10:06)
--- NOTE | 2024-02-09 10:14 | PT.INTREAT ---
PT Notes Visit Reasons: Bilateral quad ruptures Date: 02/09/2024 PRECAUTIONS:WBAT with bilateral knee braces locked in extension x 6 weeks, may unlock to 30 degrees for positioning purposes only when at rest. Ortho follow-up in 2 weeks in which he will continue with 30 degrees flexion x 2 weeks then at week 4 will advance to 60 degrees for 2 weeks then at week 6 up to 90 degrees flexion SUBJECTIVE: Pt requesting to get OOB so he can do some work on his computer. At pm session pt reported he saw Dr Gandhi and his gabriel wraps were removed. OBJECTIVE: 1st session pt presented long sitting in bed with hinged braces on BLE unlocked. ? PAIN: Pre-medicated: pain 3/10 at rest, pain stayed at 3/10 during the duration of transfer. Therapeutic Activities (69309): Direct one-on-one instruction in dynamic activities to improve functional performance. ?? Provided skilled cues and instruction on performance and technique throughout. ? BED MOBILITY/TRANSFERS? Scooting/boost: Independent? Supine with HOB up to sit : Supervision with cue to not get too close to edge.? Sit-stand: Min assist of 1 & SBA of 1? from bed ?Pt places right hand on abed and left hand on the FWW. ? ? Stand-sit: Min assist of 1 & SBA of 1? to elevated chair (25 ) maintaining ?B knee extension ?Pt reaches back with RUE ? bed - chair: CGA with 2 cues to keep FWW away from body (once standing) 2nd Session: sit to stand from elevated chair(25 height) :pushing up with BUE min A of 1 CGA of 1. [feet blocked to ensure they do not slip forward] sit to stand from commode 23 height: pushing up with BUE min A of 2 chair to commode to bed: with FWW min A of 1 & SBA of 1 Pt able to reach back with BUE to lower self to commode ? sit to supine : min A to get BLE onto bed Ambulation: 12 feetx2 with turns level surfaces with FWW CGA Therex: ankle Stretch with sheet x 3 reps x 30 sec, ankle pumps x 15 reps ankle [place] x 15 reps CW, CCW hip abduction x 10 reps hip IR/ER x 10 reps Seated in chair with legs elevated chair push up 2 sets of 4 reps ASSESSMENT:? MEÑO Angela instructed in how to lock braces in extension prior to moving patient. Pt able to complete transfer with less support as long pt foot is prevented from sliding during sit to stand. Stand to sit pt required 1 cue to ensure he is not too close to seat to allow his legs to stay extended and slide forward as he sits. 2nd session gabriel wraps off surgical dressing remains in place to B anterior knee. Pt able to push up with BUE from chair to stand position with less assistance than prior sessions. PLAN: Pt would benefit from skilled PT 1-2 times per day for global strengthening, transfers, ambulation, pain management and balance facilitation TREATMENT CODE/TIME: 14267 x 16 minutes for 1 unit ([id number]), 76833 x 1 (10 mins), 89589 x 33 for 2 units/ [id number],[id number] DISCHARGE RECOMMENDATION: Short-term SNF
--- NOTE | 2024-02-09 11:44 | CMPROGNOTE_ITS ---
Date of service: 02/09/24 Time of Service: 11:44 Care Management Progress Note Progress Note Text Progress Note Text: Carmelo was lying in bed when CM met with him. CM informed him that he received a bed offer at [email or web address] today; he accepted the bed. CM discussed the process, as [facility] will need to complete a PA for his insurance prior to his transfer. He expressed understanding, and is happy to be at [facility] waiting for his next level of care. CM informed admissions that Carmelo has accepted the bed, and asked for the PA to be initiated. CM will continue to follow. Discharge Potential Discharge Needs: Other (SNF) Anticipated Barriers to Discharge: Bed availability Patient/Family Education Needs: Review discharge instructions, discuss [facility] [employer] Transportation: [facility] RCT Transportation: Wheel chair van Plan: Anticipate Carmelo will go to SNF for short term rehab prior to returning home. Referrals were sent to several facilities for consideration. His transportation will depend on his mobility at the time of discharge. He will follow up with ortho, his PCP and his discharge plan of care. CM will continue to follow. SDOH(Care Management) Screening Will the Patient Participate in the Screening?: Yes Do you worry about having a steady place to live?: no In the past 12 months, have you had to go without electric, gas, oil or water in your home?: no Have you or anyone in your house had to go without enough food to eat?: no Has lack of transportation kept you from medical appointments or from doing things needed for daily living?: no Has anyone in your support network made you feel unsafe for any reason?: no
[2024-02-09 14:57] VITALS: BP 100/70; PULSE 75; RESP 18; TEMP 36; O2SAT 97
--- NOTE | 2024-02-09 19:55 | PGE_ITS ---
Date of Service Date of service: 02/09/24 Time of Service: 12:40 Assessment and Plan Assessment and plan (1) Rupture of right quadriceps muscle: Status: Acute (2) Rupture of left quadriceps muscle: Status: Acute Assessment and plan: Carmelo is doing well status post bilateral quadriceps repairs. I discussed with him the details of the surgery and the complexities of his case. He has been able to mobilize already which is an excellent start. Will remain weightbearing as tolerated with knees locked in extension. He may unlock the braces but not mobilizing without the 30 degrees of flexion. He should work on ankle range of motion as well. Given the difficulty with mobilization with both knees locked in extension, he likely require nursing home facility discharge. He is currently unable to mobilize independently. His pain is well-controlled with current regimen. Discharge planning. Follow-up in the office in approximately 2 weeks. (3) Constipation: Status: Acute Assessment and plan: Continue with supportive care. Had a BM but continue to use stool softeners until regular. Subjective Subjective Interval history since last seen: No new complaints. Minimal pain. Continued swelling. Small BM. Exam Narrative Exam Narrative: Sitting in the chair. No acute distress. Alert and oriented x 3. Evaluation of both legs shows clean and intact dressings. Ameya wrap is removed. No sign defect. Both quadriceps are contracted which shows elevation of the patella. Notable swelling around the knees as well. Objective Last Vital Signs Temp 36.0 C L 02/09/24 14:57 Pulse 75 02/09/24 14:57 Resp 18 02/09/24 14:57 BP 100/70 02/09/24 14:57 Pulse Ox 97 02/09/24 14:57 Time Spent with Patient Time Spent with Patient: <25 minutes Time was spent: preparing to see the patient(eg.review tests) and ordering medications,tests, procedures
[2024-02-09 23:39] VITALS: BP 103/64; PULSE 67; RESP 16; TEMP 36.5; O2SAT 95
[2024-02-10 07:52] VITALS: BP 98/73; PULSE 63; TEMP 37; O2SAT 96
--- NOTE | 2024-02-10 09:27 | PDOC.CMPRO ---
Date of service: 02/10/24 Time of Service: 09:27 Care Management Progress Note Progress Note Text Progress Note Text: Prior Auth is pending at [facility]. CM will continue to support transition to next level of care. Carmelo is updated, no concerns at this time. Discharge Potential Discharge Needs: PCP F/U Appt and Other (Ortho) Anticipated Barriers to Discharge: Bed availability (Pending PA) Patient/Family Education Needs: Review discharge instructions, discuss [employer] Me Three Transportation: Other (Dependent on mobility) Plan: Accepted a bed offer at [facility], currently pending PA. Discharge plan, SNF for short term rehab prior to returning home. Referrals were sent to several facilities for consideration. His transportation will depend on his mobility at the time of discharge. He will follow up with ortho, his PCP and his discharge plan of care. CM will continue to follow. SDOH(Care Management) Screening Will the Patient Participate in the Screening?: Yes Do you worry about having a steady place to live?: no In the past 12 months, have you had to go without electric, gas, oil or water in your home?: no Have you or anyone in your house had to go without enough food to eat?: no Has lack of transportation kept you from medical appointments or from doing things needed for daily living?: no Has anyone in your support network made you feel unsafe for any reason?: no
[2024-02-10] MEDS: Celecoxib 200 MG CAP PO ×2 (10:05→21:25)
[2024-02-10] MEDS: Multivitamin w/Minerals TAB 1 TAB PO (10:05)
[2024-02-10] MEDS: Sennosides/Docusate Sodium TAB 1 TAB PO ×2 (10:05→21:26)
[2024-02-10] MEDS: Enoxaparin 40 MG/0.4 ML SYR SC (10:05)
--- NOTE | 2024-02-10 10:35 | PT.INTREAT ---
PT Notes Visit Reasons: Bilateral quad ruptures Date: 02/10/2024 PRECAUTIONS:WBAT with bilateral knee braces locked in extension x 6 weeks, may unlock to 30 degrees for positioning purposes only when at rest. Ortho follow-up in 2 weeks ( ~02/17) in which he will continue with 30 degrees flexion x 2 weeks then at week 4 will advance to 60 degrees for 2 weeks then at week 6 up to 90 degrees flexion SUBJECTIVE: 1st session: Pt alert awake in bed visiting with friend. Pt requesting to use commode. 2nd session: pt reports he had a good day and was able to be up in chair without pain in his legs. He also stated he did use some ice on his knees to help with swelling. OBJECTIVE: Pt noted increased swelling B knees since gabriel wraps removed on 02/08. ? PAIN: Pre-medicated: pain 1/10 at rest, pain stayed at 2/10 while standing Therapeutic Activities (93129): Direct one-on-one instruction in dynamic activities to improve functional performance. ?? Provided skilled cues and instruction on performance and technique throughout. ? BED MOBILITY/TRANSFERS? Scooting/boost: Independent? Supine with HOB up to sit : Supervision with cue to not get too close to edge.? Sit-stand: Min assist of 1 from 28 height , CGA from 30 height ?Pt places right hand on bed and left hand on the FWW. ? ? Stand-sit: Min assist of 1 to commode (23 height) and to elevated chair (25 ) maintaining ?B knee extension ?Pt reaches back with RUE ? bed - chair: CGA with 1 verbal cue to keep FWW away from body (once standing) sit to stand from elevated chair(25 height) :pushing up with BUE min A of 1 . [feet blocked to ensure they do not slip forward] sit to stand from commode 23 height: pushing up with BUE min A of 2 bed to commode : with FWW min A of 1 Pt able to reach back with BUE to lower self to commode ? sit to supine : CGA to get BLE onto bed Ambulation: 20 feetx2 with turns level surfaces with FWW CGA in 1st session and 2nd session Neuromuscular reeducation/Balance : facilitation of kinesthetic and proprioception in standing with FWW , facilitation of dynamic reach with 1UE support and CGA. Therex: ankle Stretch with sheet x 3 reps x 30 sec, ankle pumps x 15 reps ankle [place] x 15 reps CW, CCW hip abduction x 10 reps hip IR/ER x 10 reps Seated in chair with legs elevated chair push up 2 sets of 4 reps ASSESSMENT:? Nurse instructed in how to lock braces in extension prior to moving patient. Pt demonstrates progression to 1 assist and able to rise from commode pushing up with BUE and weight shift to bring BLE underneath his body as he stands. He able to double his distance of ambulation today. 2nd session Pt demonstrate improved ability to rise from chair with less assistance and more confidence in his ability to perform tasks with 1 assist. Less swelling noted in 2nd session as compared to earlier session in the morning. Pt continues to be limited by inability to bend knees and need for elevated surface heights. He demonstrates great potential to progress with all functional tasks and ADLs as he is able to advance knee flexion over the coming weeks as directed by Dr Gandhi. PLAN: Pt would benefit from skilled PT 1-2 times per day for global strengthening, transfers, ambulation, pain management and balance facilitation TREATMENT CODE/TIME: 54399 x 43 minutes for 3 unit, 52855 x 12mins for 1/ 9851-5508 second session: 05081k 11 mins for 1 unit, 05383 x 17 mins for 2 units / [id number] DISCHARGE RECOMMENDATION: Short-term SNF
--- NOTE | 2024-02-10 11:51 | W.PM.PROGNOT ---
Subjective Subjective Interval history since last seen: Carmelo reports to be doing well. No acute events. He has another BM. Objective Last Vital Signs Temp 37 C 02/10/24 07:52 Pulse 63 02/10/24 07:52 Resp 16 02/09/24 23:39 BP 98/73 L 02/10/24 07:52 Pulse Ox 96 02/10/24 07:52
[2024-02-10] MEDS: Normal Saline Flush 10 ML SYR IVP (14:10)
--- NOTE | 2024-02-10 15:10 | PGE_ITS ---
Date of Service Date of service: 02/10/24 Time of Service: 15:17 Assessment and Plan Assessment and plan (1) Rupture of right quadriceps muscle: Status: Acute (2) Rupture of left quadriceps muscle: Status: Acute Assessment and plan: Plan: Mr. Reagan is a 78-year-old male who is post op day 6 status post bilateral quadriceps avulsion repairs by Dr. Gandhi on 02/04/24. Reviewed his PT note from this morning - did well without complaints. Recommend continue to work with physical therapy with same protocols. Will continue to be WBAT with braces locked in extension; may continue to unlock braces when resting. No change needed in medications as he feels as though the medications prescribed are adequately treating his pain. Will be discharged to half-way facility once he has insurance coverage - will follow-up in office in two weeks. Subjective Subjective Interval history since last seen: Mr. Reagan is a 78-year-old male who is post op day 6 status post bilateral quadriceps avulsion repairs by Dr. Gandhi on 02/04/24. Overall he reports doing well without change. Denies significant discomfort. Continues to keep bilateral leg braces in place. Completed session of PT without issues. Has had another bowel movement today. Exam Const Nutritional Appearance: well nourished Orientation: alert, awake and oriented x3 Extrem Other: Bilateral leg examination: TROM braces in place - mepilex intact and dry. Moderate edema is noted along bilateral knees. Sensation to light touch intact along length of extremities. He is able to move his toes and ankles without discomfort or restricted motion. Objective Last Vital Signs Temp 98.6 F 02/10/24 07:52 Pulse 63 02/10/24 07:52 Resp 16 02/09/24 23:39 BP 98/73 L 02/10/24 07:52 Pulse Ox 96 02/10/24 07:52 Time Spent with Patient Time Spent with Patient: <25 minutes Time was spent: preparing to see the patient(eg.review tests), obtaining and/or reviewing separately otained hiistory and counseling the patient
[2024-02-10 15:38] VITALS: BP 98/70; PULSE 72; RESP 16; TEMP 36.5; O2SAT 93
[2024-02-10 22:29] VITALS: BP 97/68; PULSE 65; RESP 18; TEMP 37.1; O2SAT 96
[2024-02-11 08:20] VITALS: BP 97/61; PULSE 65; RESP 24; TEMP 37; O2SAT 96
[2024-02-11] MEDS: Enoxaparin 40 MG/0.4 ML SYR SC (10:00)
[2024-02-11] MEDS: Multivitamin w/Minerals TAB 1 TAB PO (10:00)
[2024-02-11] MEDS: Celecoxib 200 MG CAP PO ×2 (10:00→20:46)
[2024-02-11] MEDS: Sennosides/Docusate Sodium TAB 1 TAB PO ×2 (10:00→20:46)
[2024-02-11] MEDS: Normal Saline Flush 10 ML SYR IVP (12:28)
--- NOTE | 2024-02-11 15:38 | PT.INTREAT ---
PT Notes Visit Reasons: Bilateral quad ruptures Date: 02/11/2024 PRECAUTIONS:WBAT with bilateral knee braces locked in extension x 6 weeks, may unlock to 30 degrees for positioning purposes only when at rest. Ortho follow-up in 2 weeks ( ~02/17) in which he will continue with 30 degrees flexion x 2 weeks then at week 4 will advance to 60 degrees for 2 weeks then at week 6 up to 90 degrees flexion SUBJECTIVE: 1st session: Pt alert awake in chair agreeable to participate 2nd session: OBJECTIVE: Pt continues with intermittent swelling of bilateral knees ice applied at end of session ? PAIN: Pre-medicated: pain 1/10 at rest, pain stayed at 2/10 while standing Therapeutic Activities (71872): Direct one-on-one instruction in dynamic activities to improve functional performance. ?? Provided skilled cues and instruction on performance and technique throughout. ? BED MOBILITY/TRANSFERS? Scooting/boost: Independent? Supine with HOB up to sit : Supervision with cue to not get too close to edge.? Sit-stand: Min assist of 1 from 28 height , CGA from 30 height ?Pt places right hand on bed and left hand on the FWW. ? ? Stand-sit: Min assist of 1 to commode (23 height) and to elevated chair (25 ) maintaining ?B knee extension ?Pt reaches back with RUE ? bed - chair: CGA with 1 verbal cue to keep FWW away from body (once standing) sit to stand from elevated chair(25 height) :pushing up with BUE min A of 1 . [feet blocked to ensure they do not slip forward] sit to stand from commode 23 height: pushing up with BUE min A of 2 bed to commode : with FWW min A of 1 Pt able to reach back with BUE to lower self to commode ? sit to supine : CGA to get BLE onto bed Ambulation: 40 feet feetx2 with turns level surfaces with FWW CGA in 1st session and 2nd session Neuromuscular reeducation/Balance : facilitation of kinesthetic and proprioception in standing with FWW , facilitation of dynamic reach with 1UE support and CGA. Therex: BLE ankle Stretch with sheet x 3 reps x 30 sec, ankle pumps x 15 reps ankle [place] x 15 reps CW, CCW hip abduction x 10 reps hip IR/ER x 10 reps Seated in chair with legs elevated chair push up 2 sets of 5 reps ASSESSMENT:? Nurse instructed in how to lock braces in extension prior to moving patient. Pt continues to demonstrate 1 assist and able to rise from commode pushing up with BUE and weight shift to bring BLE underneath his body as he stands. He able to double his distance of ambulation again today today. 2nd session Pt demonstrate improved ability to rise from chair with less assistance and more confidence in his ability to perform tasks with 1 assist. Less swelling noted in 2nd session as compared to earlier session in the morning after ice applied. Pt continues to be limited by inability to bend knees and need for elevated surface heights. He demonstrates great potential to progress with all functional tasks and ADLs as he is able to advance knee flexion over the coming weeks as directed by Dr Gandhi. PLAN: Pt would benefit from skilled PT 1-2 times per day for global strengthening, transfers, ambulation, pain management and balance facilitation TREATMENT CODE/TIME: 58761 x 29 minutes for 2 unit, 83593 x 12mins for 1, 16263 x 12 minutes for 1 unit/ 1651-5072 second session: 13164 x 17 mins for 2 units /1405?1422 DISCHARGE RECOMMENDATION: Short-term SNF
[2024-02-11 15:43] VITALS: BP 102/65; PULSE 67; RESP 16; TEMP 36.7; O2SAT 98
--- NOTE | 2024-02-11 17:48 | PDOC.CMPRO ---
Date of service: 02/11/24 Time of Service: 17:48 Care Management Progress Note Progress Note Text Progress Note Text: Prior Auth is still pending at [facility], per Mary. Carmelo is updated, he has no concerns at this time and is pleased with his care. CM will follow up with [facility] in the morning and continue to support transition to next level of care. Carmelo has never signed up for Medicare and agrees to a referral to [facility]. CM placed referral online. Discharge Potential Discharge Needs: PCP F/U Appt and Surgical F/U Appt (Ortho Follow up) Anticipated Barriers to Discharge: Bed availability Patient/Family Education Needs: Review discharge instructions, discuss Ask Me Three Transportation: Facility Transport Plan: Accepted a bed offer at [facility], pending PA. Discharge plan, SNF for short term rehab prior to returning home. Transportation will be dependent on his mobility and PT recommendations at time of discharge. He will follow up with ortho, his PCP and his discharge plan of care. CM will continue to follow. SDOH(Care Management) Screening Will the Patient Participate in the Screening?: Yes Do you worry about having a steady place to live?: no In the past 12 months, have you had to go without electric, gas, oil or water in your home?: no Have you or anyone in your house had to go without enough food to eat?: no Has lack of transportation kept you from medical appointments or from doing things needed for daily living?: no Has anyone in your support network made you feel unsafe for any reason?: no
[2024-02-11 19:48] VITALS: BP 105/73; PULSE 64; RESP 17; TEMP 36.6; O2SAT 98
[2024-02-11] MEDS: Acetaminophen 500 MG TAB 1000 MG PO (20:46)
[2024-02-11] MEDS: Polyethylene Glycol 3350 17 GM PACKET PO (20:49)
--- NOTE | 2024-02-11 22:18 | W.PM.PROGNOT ---
Date of Service Date of service: 02/11/24 Time of Service: 12:35 Assessment and Plan Assessment and plan (1) Rupture of right quadriceps muscle: Status: Acute (2) Rupture of left quadriceps muscle: Status: Acute Assessment and plan: Carmelo is doing well status post bilateral quadriceps repairs. There are no signs of complications at this time. He should continue with physical therapy. He may mobilize, weightbearing as tolerated with the knee is locked in extension. When not mobilizing the brace can be unlocked to 30 degrees of flexion. Discharge planning for halfway facility discharge. (3) Constipation: Status: Acute Assessment and plan: Continue with supportive care. Having BM but continue to use stool softeners until regular. Subjective Subjective Interval history since last seen: Carmelo reports no significant changes. His pain has been managed. He has been able to void. He has had bowel movements. Exam Narrative Exam Narrative: No acute distress. Alert orient x 3. Bilateral lower extremity shows some swelling around both knees with some hyperemia and resolving ecchymosis. Dressings are clean dry and intact. He is able to demonstrate active patellar mobilization with contraction of the quads bilaterally. Objective Last Vital Signs Temp 36.6 C 02/11/24 19:48 Pulse 64 02/11/24 19:48 Resp 17 02/11/24 19:48 BP 105/73 02/11/24 19:48 Pulse Ox 98 02/11/24 19:48 Time Spent with Patient Time Spent with Patient: <25 minutes Time was spent: obtaining and/or reviewing separately otained hiistory and counseling the patient
[2024-02-12 07:25] VITALS: BP 100/69; PULSE 61; RESP 18; TEMP 36; O2SAT 97
[2024-02-12] MEDS: Sennosides/Docusate Sodium TAB 1 TAB PO (08:30)
[2024-02-12] MEDS: Multivitamin w/Minerals TAB 1 TAB PO (08:30)
[2024-02-12] MEDS: Celecoxib 200 MG CAP PO (08:30)
--- NOTE | 2024-02-12 09:11 | PT.INPN ---
PT Notes Visit Reasons: Bilateral quad ruptures Inpatient Physical Therapy Progress Note Date: 02/12/2024 Dates of Service: 02/05/2024?02/12/2024 PRECAUTIONS: WBAT with bilateral knee braces locked in extension x 6 weeks, may unlock to 30 degrees for positioning purposes only when at rest. Ortho follow-up in 2 weeks ( ~02/17) in which he will continue with 30 degrees flexion x 2 weeks then at week 4 will advance to 60 degrees for 2 weeks then at week 6 up to 90 degrees flexion SUBJECTIVE: Patient is asking if there are different braces that would be easier for him to ensure they are locked at zero degrees prior to him standing. He was reminded that being locked at zero is only temporary and as he is able to advance with knee flexion he will find it easier. He will not have to lock and unlock once Dr Gandhi allows flexion with weight bearing. The braces will be set at specific degree and will remain there until his next date of progression. OBJECTIVE PAIN: [05/10 B knees BED MOBILITY/TRANSFERS Rolling L/R: CGA with rails with B knee braces locked in extension Supine-sit: SBA with HOB elevated with B knee braces locked in extension Sit-supine: CGA to get BLE into bed with B knee braces locked in extension Sit-stand: from elevated height > 23inches CGA with B knee braces locked in extension , pt presses up with BUE and slowly weight shifts his legs back to get feet under him then reaches for FWW Stand-sit: from elevated height > 23inches CGA with B knee braces locked in extension pt able to reach back and slowly slide BLE forward as he lowers himself down to surface. Bed-Chair: CGA with FWW with B knee braces locked in extension Chair-bed: CGA with FWW with B knee braces locked in extension GAIT Assistive Device: FWW Weight bearing: WBAT with B knee braces locked in extension Assist: CGA Distance: 150 feet Deviation: circumduction, absent knee flexion , increased WB through UE, slight vault to advance LEs THEREX: BLE ankle Stretch with sheet x 3 reps x 30 sec, ankle pumps x 15 reps ankle [place] x 15 reps CW, CCW hip abduction x 10 reps hip IR/ER x 10 reps Seated in chair with legs elevated chair push up 2 sets of 5 reps STAIRS: TBA ASSESSMENT: Patient is a 78 year oldmale referred to physical therapy services with diagnosis of B Quadriceps tendon rupture with surgical repair. Pt currently requires BLE hinged knee braces at all times locked in extension when moving. He may unlock the braces when at rest in supine. Patient presents with clinical signs and symptoms consistent with admitting diagnosis as demonstrated by the following impairment level findings 1. impaired B knee ROM 2. impaired strength BLE major muscle groups 3. impaired sit and stand balance 4. impaired functional activity tolerance Impairments are contributing to the following functional limitations: 1.AMPAC score of = 54.16% 2. decline in bed mobility 3. decline in transfer skills 4. decline in ability to ambulate safely without assistance and assistive device 5. inability to perform stairs safely independently 6. increased time to complete ADL/functional mobility tasks. Patient is assessed as a Moderate 22333 complexity based on the following: o History: pt is 78 yo male with complex diagnosis including need for B hinged knee braces locked in extension with slow progression to increase ROM over the course of 6 weeks o Examination: pt demonstrates limitations in strength, ROM, balance, and mobility level with underlying impairments and functional limitationsas outlined above o Presentation: evolving o Decision Making: moderate GOALS [MET/NOT MET] 1. Supine to sit CGA [MET] revised to independent 2. Sit to supine CGA [MET] revised to independent 3. Sit to stand from elevated surface min assist of 1 [met] revised to independent 4. Stand to sit to elevated surface min assist of 1 [met] revised to independent 5. Bed to chair with FWW CGA with cues for FWW management [met] revised to independent 6. Ambulate 25 feet x 2 with FWW and bilateral knee braces locked in extension with CGA [met] revised to >300 feet independent with FWW 7. Patient will demonstrate ability to assess for knee braces locked in extension independently. [not met] PLAN OF CARE/TREATMENT PLAN: 1-2x/day, 7 days/ week x 1 week Plan of care has been reviewed with the [employer] providing the service under Physical therapy direction. Initiate physical therapy intervention for strengthening, bed mobility, transfers, gait, stairs, balance training, use of assistive device. DISCHARGE RECOMMENDATIONS: SNF short term TREATMENT CODE/TIME: 66558 x 39 mins for 3 units/ [id number], [id number]
--- NOTE | 2024-02-12 09:47 | W.PM.DS.N ---
Date of service: 02/12/24 Time of Service: 09:47 DS: Diagnosis Discharge Diagnosis (1) Rupture of right quadriceps muscle: Status: Acute (2) Rupture of left quadriceps muscle: Status: Acute (3) Constipation: Status: Acute Discharge Plan Disposition Patient Disposition: [facility]NF) Condition: Improving Discharge Details Reason For Visit: Bilateral quad ruptures Admit Date/Time: 02/02/24 10:04 Admit Provider: Dominic Gandhi Attending Provider: Dominic Gandhi Primary Care Provider: Portillo Gray Hospital Course Hospital Course: Carmelo was excepted in transfer from [facility] for bilateral quadriceps avulsion's. He was taken to the operating room on hospital day #3 for operative pair of bilateral quadriceps. The surgery was tolerated well without any notable medical, surgical, or anesthetic complications. Mobilization began postoperatively with the knees locked in extension. He was voiding spontaneously. Vitals were stable. He did have issues with constipation which improved by the time of discharge. Physical therapy worked with the patient and was cleared for assisted facility due to ongoing limitations with ambulation from recent surgery and injury. No acute medical issues. Pain was controlled on oral regimen. Home Meds and New Rx's Prescriptions: New sennosides-docusate sodium [Colace 2-In-1] 8.6-50 mg Tablet 1 tab PO BID PRN (Reason: Constipation) Qty: 0 0RF celecoxib 200 mg Capsule 200 mg PO BID Qty: 0 0RF polyethylene glycol 3350 17 gram Powder In Packet 17 g PO BID PRN PRN (Reason: Constipation) Qty: 30 0RF acetaminophen 500 mg Tablet 1,000 mg PO TID Qty: 0 0RF aspirin 81 mg tablet,delayed release (DR/EC) 81 mg PO BID Qty: 60 0RF Continued [facility] See Rx Instructions .ROUTE .COMPLEX Rx Instructions: 1 tab daily ; cardio plus See Rx Instructions .ROUTE .COMPLEX Rx Instructions: 3 cap daily ; vitality essential 1 tab PO 1XD Patient Comments: Nutrition Pack, by [employer], longevity dietary supplement for men and women 50 plus. Powdered vit/min, cardio, probiotic supplement. parotid PMG See Rx Instructions PO DAILY Patient Comments: 2 tab PO DAILY; Rx Instructions: 2 tab PO DAILY; immuplex 1 tab PO TID Vision 1 EACH tablet 1 ea PO DAILY BARLEYGRASS See Rx Instructions .ROUTE DAILY Rx Instructions: 2 tabs daily daily; Discharge Instructions Additional Instructions: Activity: - Knee extension braces must remain on at all times. They may be released to perform evaluations of the skin, but should otherwise be on and buckled. Straps should be fastened snug and modified as needed. Ambulation is full weight bearing with the knee brace locked in extension. Quadricep sets may be performed with the knees locked in extension. Range of motion within the brace up to 30-40 degres is acceptable. NO ATTEMPTED WEIGHT BEARING OR AMBULATION WITHOUT THE BRACES LOCKED IN EXTENSION. - Aggressive physical and occupational therapy will be beneficial to improve mobilization with the aspiration of discharging to home. Dressings: - The Mepilex dressings may be removed on 02/18/24. No additional dressing will be required. Follow-up: - 4 weeks post-op, 03/04 at 11:15 Stand Alone Forms: Nursing Discharge Form Referrals: Dominic Gandhi MD [ [facility] STAFF PHYSICIAN] - (I left a message with the office, they should call to set up a follow up. ) Activity:: Knees in Extension Brace Equipment/Supplies:: Bilateral Hinged Knee Bra Diet:: As Tolerated Discharge Orders Discharge Orders: Discharge Order (Routine); Ordered 02/12/24 Ordered By: Dominic Gandhi DS: Summary Time Spent with Patient providing and/or coordinating discharge services: Less than 30 minutes Status at Discharge Functional status at discharge: uses cane/walker Overall status at discharge: patient is progressing back to baseline Mental Status: mental status grossly normal Speech and Movement: speech and movement normal Mood: congruent mood Affect: normal affect Quality:SDOH Health Related Social Needs: No Data to Display Exam Narrative Exam Narrative: Sitting up in the chair. NAD. AAOx3. Bilateral knee dressings c/d/i. Active elevation of the patella with quad activation. SILT DP/SP/Tib +DP/PT Psych Mental Status: mental status grossly normal Speech and Movement: speech and movement normal Mood: congruent mood Affect: normal affect DS: Data Vitals/I&O Vitals and I&O: Vital Signs Temperature 36.6 C 02/11/24 19:48 Temperature Source Tympanic 02/11/24 19:48 Pulse 64 02/11/24 19:48 Pulse 73 02/04/24 17:36 Respiratory Rate 17 02/11/24 19:48 Blood Pressure 105/73 02/11/24 19:48 Blood Pressure Mean 66 02/04/24 17:35 Blood Pressure Position Supine 02/04/24 13:07 Pulse Oximetry 98 02/11/24 19:48 Respiratory End-tidal CO2 26 02/04/24 17:36 Oxygen Delivery Method Room Air 02/11/24 21:00 Oxygen Flow Rate 0 02/11/24 21:00 Pain Level 1 02/12/24 09:22 Comment RN notified of BP. 02/10/24 07:52 Intake & Output 02/11/24 02/11/24 02/12/24 11:59 23:59 11:59 Intake Total 250 / 250 Output Total 350 / 575 225 / 575 Balance -350 / -325 25 / -325 Intake: Oral 250 / 250 Output: Urine 350 / 575 225 / 575 Other: Urine Color Yellow Yellow Straw Urine Appearance Clear Urine Odor Normal Stool Size Small Moderate Stool Characteristics Soft Brown Data Completed and Pending Labs on day of discharge: Labs from last 24 hours 02/12/24 09:14 WBC Pending RBC Pending Hgb Pending Hct Pending MCV Pending MCH Pending MCHC Pending RDW Pending Plt Count Pending MPV Pending Immature Gran % Pending Neutrophils % Pending Lymphocytes % Pending Monocytes % Pending Eosinophils % Pending Basophils % Pending Absolute Neutrophils Pending Absolute Lymphocytes Pending Absolute Monocytes Pending Absolute Eosinophils Pending Absolute Basophils Pending PFSH All Active Problems (Updated 02/04/24 @ 05:59 by Dominic Gandhi MD) Constipation (Acute) Rupture of right quadriceps muscle (Acute) Rupture of left quadriceps muscle (Acute) Esophagitis (Acute) Left inguinal hernia (Acute) s/p repair 03/2020 (also incarcerated left femoral hernia) Weight loss (Acute) MAINLY INTENTIONAL-COUNT INCLUDES THE [facility] RECORDS Knee pain (Acute) DJD (degenerative joint disease) of knee (Acute) B/L -COUNT INCLUDES THE [facility] RECORDS Chronic pain of both knees (Acute) Surgical History REMOVAL OF LIPOMAS Family History Mother , AGE 96 Diabetes Brother , age 79 Cancer Brother , age 69 Esophageal cancer Brother No problems noted. Brother No problems noted. Father , AGE 84 No problems noted. Social History Smoking/Tobacco Use Status: Never Smoking risk assessment performed?: Yes Alcohol Intake: never Substance use type: does not use Caregiver/Support person: No Household members: none Housing: house Communication Needs: Hard of Hearing Do you need help understanding health information?: Rarely Pets and animals: Yes Pets and animals: dog(s) Sexually active: Yes Do you think of yourself as: straight/heterosexual Current gender identity: male What is your relationship status?: never How often do you talk on the phone with friends or family?: three or more times per week How often do you get together with friends or relatives?: three or more times per week How often do you attend religious or amish services?: 4 or more times per year Do you belong to any clubs or organized social groups?: yes Panel score (0-1 are the most socially isolated patients): 3 What type of physical activity do you participate in: walking, bicycling and other Details: recumbant bike Duration: 15-30 minutes/day Frequency: daily Marta/Yazdanism: Congregation Special marta needs: No Seatbelt use: always Helmet use: Yes Helmet use: sometimes Drive intox or ride w/intox truck driver: No Time Spent with Patient Time Spent with Patient: <45 minutes Time was spent: preparing to see the patient(eg.review tests), obtaining and/or reviewing separately otained hiistory, ordering medications,tests, procedures, counseling the patient and care coordination
[2024-02-12 10:50] LABS: Abs Immature Grans 0.06 10^3/uL (0.0-0.06); Absolute Basophil Count 0.06 10^3/uL (0.0-0.2); Absolute Eosinophil Count 0.19 10^3/uL (0.0-0.7); Absolute Lymphocyte Count 1.06 10^3/uL (1.2-3.4); Absolute Monocyte Count 0.69 10^3/uL (0.1-0.8); Absolute Neutrophil Count 5.03 10^3/uL (1.2-6.7); Basophils % 0.8 %; Eosinophils % 2.7 %; HCT 36.6 % (40.0-50.0); HGB 12.2 g/dL (13.5-17.5); Immature Grans % 0.8 %; MCH 31.4 pg (27.0-33.0); MCHC 33.3 % (32.0-36.0); MCV 94 fL (80-95); MPV 9.2 fL (8.0-11.0); Monocytes % 9.7 %; Platelet Count 291 10^3/uL (130-400); RBC 3.88 10^6/uL (4.36-5.78); RDW 12.1 % (11.8-14.1); RDW-SD 41.9 fL; WBC 7.09 10^3/uL (4.4-10.8)
[2024-02-12 11:02] VITALS: BP 106/63; PULSE 64; RESP 18; TEMP 35.9; O2SAT 99
[2024-02-12] MEDS: Enoxaparin 40 MG/0.4 ML SYR SC (11:04)
--- NOTE | 2024-02-12 12:34 | W.PC.ACHO ---
Registration Status: Primary Language: Preferred Language: (Last Reviewed 02/02/24 @ 21:08 by Dominic Gandhi MD) REMOVAL OF LIPOMAS Most Recent Vital Signs Temperature 35.9 C L 02/12/24 11:02 Temperature Source Tympanic 02/12/24 11:02 Pulse 64 02/12/24 11:02 Pulse 73 02/04/24 17:36 Respiratory Rate 18 02/12/24 11:02 Blood Pressure 106/63 02/12/24 11:02 Blood Pressure Mean 66 02/04/24 17:35 Blood Pressure Position Supine 02/04/24 13:07 Pulse Oximetry 99 02/12/24 11:02 Respiratory End-tidal CO2 26 02/04/24 17:36 Oxygen Delivery Method Room Air 02/12/24 11:02 Oxygen Flow Rate 0 02/12/24 11:02 Pain Level 1 02/12/24 09:22 Comment RN notified of BP. 02/10/24 07:52 Allergies No Known Allergies Allergy (Verified 02/02/24 14:02) Active Medications Generic Name Dose Route Start Last Admin Trade Name Freq PRN Reason Stop Dose Admin Acetaminophen 1,000 mg 02/02/24 10:04 02/11/24 20:46 Acetaminophen 500 Mg Tab PO 1,000 mg Q6H PRN PRN Administration Bisacodyl 5 mg 02/05/24 19:50 02/07/24 21:04 Bisacodyl 5 Mg Tabec PO 5 mg DAILY PRN PRN Administration Celecoxib 200 mg 02/09/24 08:30 02/12/24 08:30 Celecoxib 200 Mg Cap PO 200 mg BID FELIPE Administration Enoxaparin Sodium 40 mg 02/07/24 08:30 02/12/24 11:04 Enoxaparin 40 Mg/0.4 Ml Syr SC 40 mg DAILY FELIPE Administration Iron/Minerals/Multivitamins 1 tab 02/03/24 08:30 02/12/24 08:30 Multivitamin W/Minerals Tab PO 1 tab DAILY FELIPE Administration Oxycodone HCl 0 mg 02/02/24 10:04 02/08/24 21:48 Oxycodone 5 Mg Tab PO 5 mg Q3H PRN PRN Administration Pain Polyethylene Glycol 17 gm 02/08/24 20:17 02/11/24 20:49 Polyethylene Glycol 3350 17 Gm Packet PO 17 gm BID PRN PRN Administration Constipation Senna/Docusate Sodium 1 tab 02/09/24 08:30 02/12/24 08:30 Sennosides/Docusate Sodium Tab PO 1 tab BID FELIPE Administration Sodium Chloride 0 ml 02/02/24 10:04 02/09/24 01:47 Normal Saline Flush 10 Ml Syr IVP 10 ml PRN PRN Administration Sodium Chloride 0 ml 02/02/24 20:00 02/12/24 09:18 Normal Saline Flush 10 Ml Syr IVP Not Given BID FELIPE IV IV Catheter Type [Left Wrist] Saline Lock IV Catheter Gauge [Left Wrist] 18 Diagnostics 02/12/24 Range/Units 10:43 WBC 7.09 (4.4-10.8) 10^3/uL RBC 3.88 L (4.36-5.78) 10^6/uL Hgb 12.2 L (13.5-17.5) g/dL Hct 36.6 L (40.0-50.0) % MCV 94 (80-95) fL MCH 31.4 (27.0-33.0) pg MCHC 33.3 (32.0-36.0) % RDW 12.1 (11.8-14.1) % Plt Count 291 (130-400) 10^3/uL MPV 9.2 (8.0-11.0) fL Immature Gran % 0.8 % Neutrophils % 71.0 % Lymphocytes % 15.0 % Monocytes % 9.7 % Eosinophils % 2.7 % Basophils % 0.8 % Nucleated RBC % 0.0 (0.0-0.3) % Absolute Neutrophils 5.03 (1.2-6.7) 10^3/uL Absolute Lymphocytes 1.06 L (1.2-3.4) 10^3/uL Absolute Monocytes 0.69 (0.1-0.8) 10^3/uL Absolute Eosinophils 0.19 (0.0-0.7) 10^3/uL Absolute Basophils 0.06 (0.0-0.2) 10^3/uL Intake and Output - 24 Hour Total 02/02/24 09:42 thru 02/12/24 09:21 Intake Total 3890 Output Total 8955 Balance -5065 Weight 79 kg Intake: IV 850 Oral 3040 Output: Urine 8905 Estimated Blood Loss 50 Other: Urine Color Yellow Urine Appearance Clear Urine Odor Normal Comment [id number] [id number] he voided an some one dumped it Stool Size Moderate Stool Characteristics Soft Brown Emesis Description None Problems (Last Reviewed 02/02/24 @ 21:08 by Dominic Gandhi MD) Constipation (Acute) Rupture of right quadriceps muscle (Acute) Rupture of left quadriceps muscle (Acute) v v v v v v v v v Sending and/or Receiving Nurses: Please use comment section below to note any information pertinent to the patient hand-off not included above. Information / Comments: Report received from: report given to Ny at [facility] and rehab at 1230 from Sherie Santacruz RN
--- NOTE | 2024-02-12 13:40 | PDOC.CMDIS ---
Date of service: 02/12/24 Time of Service: 13:40 LACE Index Scoring Tool Questions: Length of Stay (in days): 7 - 13 Was the patient admitted via the E.D.?: No E.D. Visits: 0 Answers: Total Score: 5 Risk of Readmission: Low Risk Care Management Discharge Plan Reason for Hospitalization: bilateral quad ruptures Discharge Plan: Carmelo transferred to [facility] today for short term rehab prior to returning home. He was transported via [facility], coordinated by CM. He will follow up with his PCP and discharge plan of care. Patient/Family Education Needs: Review discharge instructions and limitations, discussion of self care needs including ask me three. Services Needed at Discharge: [facility] Facility ([facility]) and Transportation ([facility]) SDOH Health Related Social Needs: No Data to Display
== END 2024-02-12 14:33 | disposition skilled nursing facility (03) | DRG 502 ==
PROVIDERS: Admitting Provider Student in an Organized Health Care Education/Training Program; PCP Family Medicine; Visit Provider Student in an Organized Health Care Education/Training Program
PROC: 0LMM0ZZ Reattachment of Left Upper Leg Tendon, Open Approach (ICD-10-PCS; CPT 27385; principal; 2024-02-04 13:30)
DX: S76.112A Strain of left quadriceps muscle, fascia and tendon, initial encounter (principal); S76.111A Strain of right quadriceps muscle, fascia and tendon, initial encounter; K59.00 Constipation, unspecified; W10.8XXA Fall (on) (from) other stairs and steps, initial encounter; M17.0 Bilateral primary osteoarthritis of knee; G89.29 Other chronic pain; K40.90 Unilateral inguinal hernia, without obstruction or gangrene, not specified as recurrent; K20.90 Esophagitis, unspecified without bleeding
CPT/HCPCS: 27385; 36415; 64447; 80048; 85027; 97110; 97112; 97116; 97162; 97530; J1650; 85025; J0171; J0665; J0690; J1885; J2371; J2704